=== PATIENT | female | born 1940 | race Hispanic/Latino ===

== ENCOUNTER 2018-07-27 12:01 | Emergency (ER) | payer OTHER ==
[2018-07-27 12:48] LABS: Urine Blood NEGATIVE (NEG); Urine Glucose NEGATIVE (NEG); Urine Protein NEGATIVE (NEG)
[2018-07-27 13:33] LABS: Absolute Lymphocytes (CBC) 1.5 K/uL (0.7-4.9); Absolute Monocytes 0.4 K/uL (0.1-1.3); Absolute Neutrophil 4.8 K/uL (1.8-8.0); Basophils % 0.9 % (0-1.3); Eosinophils % 1.6 % (0-4.4); Hematocrit 36.8 % (36.0-45.0); Lymphocytes % 21.6 % (15.3-44.8); MPV 10.4 fL (7.6-11.3); Monocytes % 5.2 % (3.3-12.3)
[2018-07-27 13:48] LABS: ALT/SGPT 28 U/L (12-78); AST/SGOT 23 U/L (15-37); Albumin 3.8 g/dL (3.4-5.0); Alkaline Phosphatase 92 U/L (45-117); BUN Blood Urea Nitrogen 20 mg/dL (7-18); Bicarbonate 27 mmol/L (21-32); Bilirubin Direct < 0.1 mg/dL (0-0.2); Bilirubin Total 0.4 mg/dL (0.2-1.0); Glucose Level 98 mg/dL (74-106); Lipase 181 U/L (73-393); Potassium 4.3 mmol/L (3.5-5.1); Protein, Total 7.5 g/dL (6.4-8.2); Sodium Level 142 mmol/L (136-145)
[2018-07-27 13:53] LABS: Urine Bacteria <20 /HPF (<20); Urine Culture Reflex Order NOT NEEDED; Urine RBC <5 /HPF (NONE SEEN)
[2018-07-27 14:13] LABS: Magnesium 2.2 mg/dL (1.8-2.4); NT PRO-BNP 314 pg/mL (<450); Troponin (Emerg Dept Use Only) < 0.02 ng/mL (0.0-0.045)
[2018-07-27 14:14] LABS: Protime INR 1.03
--- NOTE | 2018-07-27 14:43 | RAD REPORT ---
EXAM DESCRIPTION: CT - Abdomen Pelvis W Contrast - 07/27/2018 2:12 pm CLINICAL HISTORY: Abdominal pain with nausea. COMPARISON: none. TECHNIQUE: Computed axial tomography of the abdomen pelvis was obtained. 100 cc Isovue-300 was admin istered intravenously. Oral contrast was not requested which limits evaluation of bowel. All CT scans are performed using dose optimization technique as appropriate and may include automated exposure control or mA/KV adjustment according to patient size. FINDINGS: The liver, spleen, pancreas, adrenal and kidneys appear unremarkable. Normal appendix Diverticula stem from the colon. Mild stranding adjacent to the sigmoid colon. Umbilical hernia contains fat. The neck measures 3 centimeters Gallstones. Gallbladder wall is not thickened IMPRESSION: Mild sigmoid diverticulitis Cholelithiasis Umbilical hernia
--- NOTE | 2018-07-27 14:44 | RAD REPORT ---
EXAM DESCRIPTION: Ang Single View07/27/2018 2:04 pm CLINICAL HISTORY: Chest pain COMPARISON: 2017 FINDINGS: The lungs appear clear of acute infiltrate. The heart is mildly enlarged IMPRESSION: No acute abnormalities displayed
[2018-07-27] MEDS ORDERED: METRONIDAZOLE 500mg IVPB 500 MG/100 ML BAG IV ONE (15:14)
[2018-07-27] MEDS ORDERED: CIPROFLOXACIN HCL 500 MG TAB ONE (15:14)
--- NOTE | 2018-07-27 15:36 | EDPHYS ---
Physician Documentation [facility] Name: Preethi Samano Age: 78 yrs Sex: Female : 1940 Arrival Date: 07/27/2018 Time: 12:04 Bed 17 Private MD: ED Physician Juan M Clark HPI: 07/27 14:17 This 78 yrs old Female presents to ER via Ambulatory with complaints of Pelvic pm1 Pain. 14:17 The patient presents with abdominal pain suprapubic area. pm1 14:17 Onset: The symptoms/episode began/occurred yesterday. The symptoms do not radiate. pm1 Associated signs and symptoms: Pertinent positives: nausea, Pertinent negatives: chest pain, constipation, diarrhea, vomiting. The symptoms are described as achy. Modifying factors: The symptoms are alleviated by nothing, the symptoms are aggravated by nothing. Severity of pain: in the emergency department the pain is unchanged. The patient has not experienced similar symptoms in the past. The patient has not recently seen a physician. Historical: - Allergies: 13:07 No Known Allergies; bp - Home Meds: 13:07 lisinopril 20 mg Oral tab 1 tab once daily [Active]; simvastatin 20 mg Oral tab 1 tab bp once daily [Active]; - PMHx: 13:07 High Cholesterol; Hypertension; bp - Immunization history:: Adult Immunizations up to date. - Social history:: Smoking status: Patient/guardian denies using tobacco. - Ebola Screening: : No symptoms or risks identified at this time. ROS: 14:17 Constitutional: Negative for fever, chills, and weight loss, Eyes: Negative for injury, pm1 pain, redness, and discharge, ENT: Negative for injury, pain, and discharge, Neck: Negative for injury, pain, and swelling, Cardiovascular: Negative for chest pain, palpitations, and edema, Respiratory: Negative for shortness of breath, cough, wheezing, and pleuritic chest pain. 14:17 Back: Negative for injury and pain, : Negative for injury, bleeding, discharge, and swelling, MS/Extremity: Negative for injury and deformity, Skin: Negative for injury, rash, and discoloration, Neuro: Negative for headache, weakness, numbness, tingling, and seizure. 14:17 Abdomen/GI: Positive for abdominal pain, nausea, of the suprapubic area, Negative for vomiting, diarrhea, constipation. Exam: 14:17 Constitutional: This is a well developed, well nourished patient who is awake, alert, pm1 and in no acute distress. Head/Face: Normocephalic, atraumatic. Eyes: Pupils equal round and reactive to light, extra-ocular motions intact. Lids and lashes normal. Conjunctiva and sclera are non-icteric and not injected. Cornea within normal limits. Periorbital areas with no swelling, redness, or edema. ENT: Nares patent. No nasal discharge, no septal abnormalities noted. Tympanic membranes are normal and external auditory canals are clear. Oropharynx with no redness, swelling, or masses, exudates, or evidence of obstruction, uvula midline. Mucous membranes moist. Neck: Trachea midline, no thyromegaly or masses palpated, and no cervical lymphadenopathy. Supple, full range of motion without nuchal rigidity, or vertebral point tenderness. No Meningismus. Chest/axilla: Normal chest wall appearance and motion. Nontender with no deformity. No lesions are appreciated. Cardiovascular: Regular rate and rhythm with a normal S1 and S2. No gallops, murmurs, or rubs. Normal PMI, no JVD. No pulse deficits. Respiratory: Lungs have equal breath sounds bilaterally, clear to auscultation and percussion. No rales, rhonchi or wheezes noted. No increased work of breathing, no retractions or nasal flaring. 14:17 Back: No spinal tenderness. No costovertebral tenderness. Full range of motion. Skin: Warm, dry with normal turgor. Normal color with no rashes, no lesions, and no evidence of cellulitis. 14:17 Abdomen/GI: Inspection: abdomen appears normal, Bowel sounds: normal, Palpation: soft, mild abdominal tenderness, in the suprapubic area, mass, is not appreciated, rebound tenderness, is not appreciated. 14:17 Musculoskeletal/extremity: Extremities: all appear grossly normal, with no appreciated pain with palpation, Circulation is intact in all extremities. Vital Signs: 12:40 BP 140 / 64; Pulse 66; Resp 16; Temp 98; Pulse Ox 98% ; Weight 68.04 kg; bp 13:46 BP 101 / 78; Pulse 61; Resp 12; Temp 98.1(TE); Pulse Ox 100% on R/A; mh5 14:36 BP 130 / 52; Pulse 57; Resp 17; Temp 97.9(TE); Pulse Ox 100% on R/A; mh5 15:19 BP 127 / 66; Pulse 64; Resp 14; Temp 97.9(TE); Pulse Ox 100% on R/A; mh5 MDM: 12:51 Patient medically screened. pm1 15:33 Data reviewed: vital signs. Data interpreted: Pulse oximetry: on room air is 100 %. pm1 Interpretation: normal. 15:33 Counseling: I had a detailed discussion with the patient and/or guardian regarding: the pm1 historical points, exam findings, and any diagnostic results supporting the discharge/admit diagnosis, lab results, radiology results, the need for outpatient follow up, to return to the emergency department if symptoms worsen or persist or if there are any questions or concerns that arise at home. 15:35 Special discussion: Based on the patient's Hx, exam, and Dx evaluation, there is no pm1 indication for emergent surgery or inpatient Tx. It is understood by the patient/guardian that if the Sx's persist or worsen they need to return immediately for re-evaluation. no evidence of severe diverticulitis, WBC within normal limits and CT scan shows mild diverticulitis, patient is able to tolerate PO in the ER, no immuno-comprised state or significant morbidities, no severe pain requiring narcotics. 15:35 ED course: Patient ate dragon fruit prior to onset of symptoms. pm1 07/27 12:44 Order name: Urine Dipstick--Ancillary (enter results); Complete Time: 12:51 07/27 12:59 Order name: Basic Metabolic Panel pm1 07/27 12:59 Order name: CBC with Diff pm1 07/27 12:59 Order name: Creatinine for Radiology; Complete Time: 13:47 pm1 07/27 12:59 Order name: Hepatic Function; Complete Time: 13:49 pm1 07/27 12:59 Order name: Lipase; Complete Time: 13:49 pm1 07/27 12:59 Order name: Urine Microscopic Only; Complete Time: 14:17 pm1 07/27 13:02 Order name: Basic Metabolic Panel; Complete Time: 13:49 EDMS 07/27 13:02 Order name: CBC with Automated Diff; Complete Time: 13:44 EDMS 07/27 13:31 Order name: Troponin (emerg Dept Use Only); Complete Time: 14:17 bp 07/27 13:31 Order name: BNP; Complete Time: 14:17 bp 07/27 13:31 Order name: Protime (+inr); Complete Time: 14:46 bp 16 13:31 Order name: Ptt, Activated; Complete Time: 14:46 bp 07/27 13:31 Order name: Magnesium; Complete Time: 14:17 bp 07/27 12:59 Order name: IV Saline Lock; Complete Time: 13:30 pm1 07/27 12:59 Order name: Labs collected and sent; Complete Time: 13:30 pm1 07/27 12:59 Order name: CT Abd/Pelvis - IV Contrast Only; Complete Time: 14:46 pm1 07/27 13:31 Order name: CXR XRAY; Complete Time: 14:46 bp 07/27 13:31 Order name: EKG; Complete Time: 13:34 bp 07/27 13:31 Order name: EKG - Nurse/Tech; Complete Time: 13:44 bp EC:43 Rate is 59 beats/min. Rhythm is regular, Sinus bradycardia with Occasional PVCs. QRS pm1 [place] is Normal. No Q waves. T waves are Normal. No ST changes noted. Clinical impression: Abnormal EKG without significant change. Administered Medications: 15:00 Drug: Ciprofloxacin 500 mg Route: PO; bp 15:24 Follow up: Response: No adverse reaction bp 15:00 Drug: Flagyl 500 mg Volume: 100 ml; Route: IVPB; Rate: 200 ml/hr; Infused Over: 30 bp mins; Site: right forearm; 16:45 Follow up: IV Status: Completed infusion; IV Intake: 100ml bp Disposition: 07/27/18 15:35 Discharged to Home. Impression: Diverticulitis of large intestine without perforation or abscess without bleeding. - Condition is Stable. - Discharge Instructions: Clear Liquid Diet, Adult, Diverticulitis, Full Liquid Diet. - Prescriptions for Flagyl 500 mg Oral Tablet - take 1 tablet by ORAL route every 8 hours for 10 days; 30 tablet. Cipro 500 mg Oral Tablet - take 1 tablet by ORAL route every 12 hours for 10 days; 20 tablet. Bentyl 20 mg Oral Tablet - take 1 tablet by ORAL route every 6 hours As needed; 20 tablet. Zofran 4 mg Oral Tablet - take 1 tablet by ORAL route every 12 hours As needed; 20 tablet. - Medication Reconciliation Form, Thank You Letter, Antibiotic Education, Prescription Opioid Use form. - Follow up: Emergency Department; When: As needed; Reason: Worsening of condition. Follow up: Private Physician; When: 2 - 3 days; Reason: Recheck today's complaints, Continuance of care, Re-evaluation by your physician. - Problem is new. - Symptoms have improved. Addendum: 07/29/2018 02:31 Co-signature as Attending Physician, Juan M Clark MD. g s Signatures: Dispatcher [employer] EDMS Ed Butt, VAT OPERATOR VAT OPERATOR pm1 Juan M Clark MD MD gs Peltier, Brian RN RN bp Corrections: (The following items were deleted from the chart) 07/27 16:45 15:35 07/27/2018 15:35 Discharged to Home. Impression: Diverticulitis of large bp intestine without perforation or abscess without bleeding. Condition is Stable. Forms are Medication Reconciliation Form, Thank You Letter, Antibiotic Education, Prescription Opioid Use. Follow up: Emergency Department; When: As needed; Reason: Worsening of condition. Follow up: Private Physician; When: 2 - 3 days; Reason: Recheck today's complaints, Continuance of care, Re-evaluation by your physician. Problem is new. Symptoms have improved. pm1
--- NOTE | 2018-07-27 15:36 | ER ---
Nurse's Notes [facility] Name: Preethi Samano Age: 78 yrs Sex: Female : 1940 Arrival Date: 07/27/2018 Time: 12:04 Bed 17 Private MD: Diagnosis: Diverticulitis of large intestine without perforation or abscess without bleeding Presentation: 07/27 12:40 Presenting complaint: Patient states: LOWER ABDOMINAL PAIN SINCE Y/D AM, NO VOMITING OR bp DIARRHEA. Transition of care: patient was not received from another setting of care. 12:40 Method Of Arrival: Ambulatory bp 12:40 Onset of symptoms is unknown. Risk Assessment: Do you want to hurt yourself or someone bp else? Patient reports no desire to harm self or others. Initial Sepsis Screen: Does the patient meet any 2 criteria? No. Patient's initial sepsis screen is negative. Does the patient have a suspected source of infection? No. Patient's initial sepsis screen is negative. Care prior to arrival: None. 12:40 Acuity: [place] 3 bp Triage Assessment: 12:40 General: Appears in no apparent distress. comfortable, obese, Behavior is calm, bp cooperative, appropriate for age. Pain: Complains of pain in right lower quadrant and left lower quadrant. EENT: No deficits noted. Neuro: Level of Consciousness is awake, alert, obeys commands, Oriented to person, place, time, situation, Appropriate for age. Cardiovascular: No deficits noted. Respiratory: Airway is patent Respiratory effort is even, unlabored, Respiratory pattern is regular, symmetrical. GI: Reports lower abdominal pain, nausea. : No signs and/or symptoms were reported regarding the genitourinary system. Derm: No deficits noted. Musculoskeletal: Circulation, motion, and sensation intact. Range of motion: intact in all extremities. Historical: - Allergies: 13:07 No Known Allergies; bp - Home Meds: 13:07 lisinopril 20 mg Oral tab 1 tab once daily [Active]; simvastatin 20 mg Oral tab 1 tab bp once daily [Active]; - PMHx: 13:07 High Cholesterol; Hypertension; bp - Immunization history:: Adult Immunizations up to date. - Social history:: Smoking status: Patient/guardian denies using tobacco. - Ebola Screening: : No symptoms or risks identified at this time. Screenin:40 Abuse screen: Denies threats or abuse. Denies injuries from another. Nutritional bp screening: No deficits noted. Tuberculosis screening: No symptoms or risk factors identified. Fall Risk None identified. Assessment: 12:40 General: SEE TRIAGE NOTE. bp 14:30 Reassessment: ALL CURRENT ORDERS COMPLETED, RESULTS PENDING. bp 16:43 Reassessment: PT D/C HOME AMBULATORY WITH FAMILY, DX WITH DIVERTICULITIS WITHOUT bp PERFORATION. Vital Signs: 12:40 BP 140 / 64; Pulse 66; Resp 16; Temp 98; Pulse Ox 98% ; Weight 68.04 kg; bp 13:46 BP 101 / 78; Pulse 61; Resp 12; Temp 98.1(TE); Pulse Ox 100% on R/A; mh5 14:36 BP 130 / 52; Pulse 57; Resp 17; Temp 97.9(TE); Pulse Ox 100% on R/A; mh5 15:19 BP 127 / 66; Pulse 64; Resp 14; Temp 97.9(TE); Pulse Ox 100% on R/A; mh5 ED Course: 12:04 Patient arrived in ED. as 12:37 Cecilio Herr, RN is Primary Nurse. bp 12:40 Arm band placed on. bp 12:40 Patient has correct armband on for positive identification. Bed in low position. Call bp light in reach. Side rails up X2. Adult w/ patient. Pulse ox on. NIBP on. 12:40 Patient maintains SpO2 saturation greater than 95% on room air. bp 12:51 Ed Butt NP is PHCP. pm1 12:51 Juan M Clark MD is Attending Physician. pm1 13:06 Triage completed. bp 13:19 Radiology exam delayed due to lab results not completed at this time. (BUN/Creatinine). kw1 13:30 Urine Microscopic Only Sent. mh5 13:30 Basic Metabolic Panel Sent. mh5 13:30 CBC with Diff Sent. mh5 13:30 Creatinine for Radiology Sent. mh5 13:30 Hepatic Function Sent. mh5 13:30 Lipase Sent. 5 13:30 CBC with Automated Diff Sent. 5 13:30 Basic Metabolic Panel Sent. mh5 13:30 Initial lab(s) drawn, by nh, sent to lab. Urine collected: clean catch specimen, clear, mh5 Amount Voided: 240mL. Inserted saline lock: 20 gauge in right antecubital area, using aseptic technique. Blood collected. 13:44 EKG done, by ED staff, reviewed by Ed Butt NP. [facility] 13:44 Protime (+inr) Sent. [facility] 13:44 Ptt, Activated Sent. [facility] 13:44 BNP Sent. [facility] 13:44 Troponin (emerg Dept Use Only) Sent. [facility] 13:45 Warm blanket given. monitoring manager on. [facility] 14:05 CXR XRAY In Process Unspecified. EDMS 14:10 CT completed. Patient tolerated procedure well. Patient moved back from CT. kw1 14:13 CT Abd/Pelvis - IV Contrast Only In Process Unspecified. EDMS 16:44 No provider procedures requiring assistance completed. IV discontinued, intact, bp bleeding controlled, No redness/swelling at site. Pressure dressing applied. Administered Medications: 15:00 Drug: Ciprofloxacin 500 mg Route: PO; bp 15:24 Follow up: Response: No adverse reaction bp 15:00 Drug: Flagyl 500 mg Volume: 100 ml; Route: IVPB; Rate: 200 ml/hr; Infused Over: 30 bp mins; Site: right forearm; 16:45 Follow up: IV Status: Completed infusion; IV Intake: 100ml bp Intake: 16:45 IV: 100ml; Total: 100ml. bp Outcome: 15:35 Discharge ordered by . pm1 16:44 Discharged to home ambulatory, with family. bp 16:44 Condition: stable 16:44 Discharge instructions given to patient, family, Instructed on discharge instructions, follow up and referral plans. medication usage, Demonstrated understanding of instructions, follow-up care, medications, Prescriptions given X 4. 16:45 Patient left the ED. bp Signatures: Dispatcher [employer] Yuliana Eric Patrick, REJI REGISTERED NURSE [employer] PARTUM pm1 Preethi Elizondo [facility] Cecilio Herr, RN RN bp Laisha Alonso 1
--- NOTE | 2018-07-27 20:48 | EKG ---
Test Date: 2018-07-27 Test Time: 13:39:32 Distribution System Operator: KRAIG MEASUREMENT RESULTS: Intervals: Rate: 59 MS: 156 QRSD: 78 QT: 418 QTc: 413 [place]: P: 23 MS: 156 QRS: -5 T: 47 INTERPRETIVE STATEMENTS: Sinus bradycardia with occasional premature ventricular complexes Cannot rule out Anterior infarct, age undetermined Abnormal ECG Compared to ECG 11/14/2016 15:58:24 Ventricular premature complex(es) now present Myocardial infarct finding now present Electronically Signed On 07-27-18 20:47:45 CDT by Kevin Rico
== END 2018-07-27 16:45 | disposition home or self-care (01) ==
LOC: ER 12:01
DX: K57.92 Diverticulitis of intestine, part unspecified, without perforation or abscess without bleeding (principal); I10 Essential (primary) hypertension; E78.00 Pure hypercholesterolemia, unspecified
CPT/HCPCS: 96365; 93005; 85025; 80048; 36415; 83735; 85610; 80076; 85730; 84484; 83690; 83880; 74177; 71045; 99285; 96366; Q9967; 81003; 81015

== ENCOUNTER 2018-11-20 11:00 | Emergency (ER) | payer OTHER ==
[2018-11-20] MEDS ORDERED: dexAMETHasone 10 MG/ML VIAL ONE (12:28)
--- NOTE | 2018-11-20 12:37 | EDPHYS ---
Physician Documentation [facility] Name: Preethi Samano Age: 78 yrs Sex: Female : 1940 Arrival Date: 11/20/2018 Time: 11:04 Bed 9 Private MD: ED Physician Juan M Clark HPI: 11/20 12:22 This 78 yrs old Female presents to ER via Ambulatory with complaints of Hives. jmm 12:22 The patient's rash thought to be caused by an unknown cause. Onset: The jmm symptoms/episode began/occurred gradually, 3 day(s) ago. Associated signs and symptoms: Pertinent positives: itching, Pertinent negatives: difficulty breathing, fever, Pain swelling of lips, swelling of throat, swelling of tongue, vomiting. The patient has experienced a previous episode. Denies vomiting or shortness of breath. . Historical: - Allergies: 11:25 No Known Allergies; ch - Home Meds: 11:25 lisinopril 20 mg Oral tab 1 tab once daily [Active]; simvastatin 20 mg Oral tab 1 tab ch once daily [Active]; - PMHx: 11:25 High Cholesterol; Hypertension; ch - PSHx: 11:25 None; ch - Immunization history:: Adult Immunizations up to date. - Social history:: Smoking status: Patient/guardian denies using tobacco. - Ebola Screening: : Patient negative for fever greater than or equal to 101.5 degrees Fahrenheit, and additional compatible Ebola Virus Disease symptoms Patient denies exposure to infectious person Patient denies travel to an Ebola-affected area in the 21 days before illness onset No symptoms or risks identified at this time. ROS: 12:22 Constitutional: Negative for fever, chills, and weight loss, Cardiovascular: Negative jmm for chest pain, palpitations, and edema, Respiratory: Negative for shortness of breath, cough, wheezing, and pleuritic chest pain, Abdomen/GI: Negative for abdominal pain, nausea, vomiting, diarrhea, and constipation. 12:22 Skin: Positive for rash. 12:22 All other systems are negative. Exam: 12:22 Constitutional: This is a well developed, well nourished patient who is awake, alert, jmm and in no acute distress. Head/Face: atraumatic. Eyes: EOMI, no conjunctival erythema appreciated ENT: Moist Mucus Membranes Neck: Trachea midline, Supple Chest/axilla: Normal chest wall appearance and motion. Cardiovascular: Regular rate and rhythm. No edema appreciated Respiratory: Normal respirations, no respiratory distress appreciated Abdomen/GI: Non distended, soft Back: Normal ROM 12:22 Skin: urticaria noted diffusely. 12:22 Neuro: Orientation: is normal, Mentation: is normal, Memory: is normal. 12:22 Psych: Behavior/mood is pleasant, cooperative. Vital Signs: 11:25 BP 152 / 81; Pulse 70; Resp 16; Temp 97.2; Pulse Ox 99% on R/A; Weight 63.5 kg; Height ch 4 ft. 10 in. (147.32 cm); Pain 0/10; 11:25 Body Mass Index 29.26 (63.50 kg, 147.32 cm) [employer]: 12:[address] [facility] 12:32 Data reviewed: vital signs, nurses notes. Counseling: I had a detailed discussion with lady the patient and/or guardian regarding: the historical points, exam findings, and any diagnostic results supporting the discharge/admit diagnosis, the need for outpatient follow up, to return to the emergency department if symptoms worsen or persist or if there are any questions or concerns that arise at home. ED course: Patient is alert and non toxic in appearance in the ED. PE findings consistent with urticaria. No pharyngeal edema, I do not suspect anaphylaxis. Patient is given strict return precautions. Patient understood and agrees with the plan of care. . Administered Medications: 12:31 Drug: Decadron 10 mg Route: IM; Site: right gluteus; ss 12:56 Follow up: Response: No adverse reaction Disposition: 17:16 Co-signature as Attending Physician, Juan M Clark MD. Disposition: 11/20/18 12:36 Discharged to Home. Impression: Urticaria. - Condition is Stable. - Discharge Instructions: Hives. - Prescriptions for Prednisone 20 mg Oral Tablet - take 1 tablet by ORAL route once daily for 5 days; 5 tablet. - Medication Reconciliation Form, Thank You Letter, Antibiotic Education, Prescription Opioid Use form. - Follow up: Private Physician; When: 2 - 3 days; Reason: Recheck today's complaints, Continuance of care, Re-evaluation by your physician. Signatures: Lou Reyes RN RN Chema Carrasco PA PA jmm Smirch, Shelby, RN RN ss Juan M Clark MD MD gs Corrections: (The following items were deleted from the chart) 12:56 12:36 11/20/2018 12:36 Discharged to Home. Impression: Urticaria. Condition is Stable. ss Forms are Medication Reconciliation Form, Thank You Letter, Antibiotic Education, Prescription Opioid Use. Follow up: Private Physician; When: 2 - 3 days; Reason: Recheck today's complaints, Continuance of care, Re-evaluation by your physician. lady
--- NOTE | 2018-11-20 12:37 | ER ---
Nurse's Notes [facility] Name: Preethi Samano Age: 78 yrs Sex: Female : 1940 Arrival Date: 11/20/2018 Time: 11:04 Bed 9 Private MD: Diagnosis: Urticaria Presentation: 11/20 11:24 Presenting complaint: Patient states: hives for three days. itches all over. Transition ch of care: patient was not received from another setting of care. Onset: The symptoms/episode began/occurred gradually, 3 day(s) ago. Anaphylaxis evaluation, no signs or symptoms of anaphylaxis were noted. Onset of symptoms was November 17, 2018. Risk Assessment: Do you want to hurt yourself or someone else? Patient reports no desire to harm self or others. Initial Sepsis Screen: Does the patient meet any 2 criteria? No. Patient's initial sepsis screen is negative. Does the patient have a suspected source of infection? No. Patient's initial sepsis screen is negative. Care prior to arrival: None. 11:24 Method Of Arrival: Ambulatory 11:24 Acuity: ISRAEL 5 ch Triage Assessment: 11:25 General: Appears in no apparent distress. uncomfortable, Behavior is calm, cooperative, ch appropriate for age. Pain: Denies pain. Historical: - Allergies: 11:25 No Known Allergies; ch - Home Meds: 11:25 lisinopril 20 mg Oral tab 1 tab once daily [Active]; simvastatin 20 mg Oral tab 1 tab ch once daily [Active]; - PMHx: 11:25 High Cholesterol; Hypertension; ch - PSHx: 11:25 None; ch - Immunization history:: Adult Immunizations up to date. - Social history:: Smoking status: Patient/guardian denies using tobacco. - Ebola Screening: : Patient negative for fever greater than or equal to 101.5 degrees Fahrenheit, and additional compatible Ebola Virus Disease symptoms Patient denies exposure to infectious person Patient denies travel to an Ebola-affected area in the 21 days before illness onset No symptoms or risks identified at this time. Screenin:55 Abuse screen: Denies threats or abuse. Denies injuries from another. Nutritional ss screening: No deficits noted. Tuberculosis screening: No symptoms or risk factors identified. Never had TB. Fall Risk None identified. Assessment: 11:55 General: Appears in no apparent distress. comfortable, Behavior is calm, cooperative, ss Denies fever, feeling ill, fatigue, chills. Pain: Denies pain. Neuro: Level of Consciousness is awake, alert, obeys commands, Oriented to person, place, time, situation. Cardiovascular: Capillary refill < 3 seconds is brisk in bilateral fingers. Respiratory: Airway is patent Respiratory effort is even, unlabored, Respiratory pattern is regular, symmetrical, Breath sounds are clear bilaterally. Denies cough, shortness of breath labored breathing, pain with respiration, pain with cough, pain with movement. GI: Patient currently denies abdominal pain, diarrhea, nausea, tolerance of food. : No signs and/or symptoms were reported regarding the genitourinary system. EENT: Oral mucosa is moist. Derm: Rash noted that is itchy, red, on back, abdomen, right arm, left arm, right leg and left leg. Musculoskeletal: Circulation, motion, and sensation intact. Range of motion: intact in all extremities, Swelling absent. Vital Signs: 11:25 BP 152 / 81; Pulse 70; Resp 16; Temp 97.2; Pulse Ox 99% on R/A; Weight 63.5 kg; Height ch 4 ft. 10 in. (147.32 cm); Pain 0/10; 11:25 Body Mass Index 29.26 (63.50 kg, 147.32 cm) ED Course: 11:04 Patient arrived in ED. as 11:25 Triage completed. 11:25 Arm band placed on left wrist. Patient placed in waiting room. 11:55 Patient has correct armband on for positive identification. Bed in low position. Call ss light in reach. 11:59 Chema Carrasco PA is PHCP. [facility] 11:59 Juan M Clark MD is Attending Physician. [facility] 12:31 Porsha Grullon, DIAMANTE is Primary Nurse. ss 12:54 No provider procedures requiring assistance completed. Patient did not have IV access ss during this emergency room visit. Administered Medications: 12:31 Drug: Decadron 10 mg Route: IM; Site: right gluteus; ss 12:56 Follow up: Response: No adverse reaction ss Outcome: 12:36 Discharge ordered by . [facility] 12:54 Discharged to home ambulatory, with family. ss 12:54 Condition: good 12:54 Discharge instructions given to patient, family, Instructed on discharge instructions, follow up and referral plans. medication usage, Demonstrated understanding of instructions, follow-up care, medications, Prescriptions given X 1. 12:56 Patient left the ED. ss Signatures: Lou Reyes, RN RN Chema Whitfield PA PA jmm Martinez, Amelia as Smirch, Shelby, DIAMANTE RN ss
[2018-11-20 13:01] VITALS: BP 152/81; TEMP 97.2; O2SAT 99
== END 2018-11-20 12:56 | disposition home or self-care (01) ==
LOC: ER 11:00
DX: L50.9 Urticaria, unspecified (principal); I10 Essential (primary) hypertension; E78.00 Pure hypercholesterolemia, unspecified
CPT/HCPCS: 96372; 99283; J1100

== ENCOUNTER 2020-12-05 22:40 | Emergency (ER) | payer OTHER ==
[2020-12-06] MEDS ORDERED: MORPHINE 2 MG/ML SYR ONE (00:53)
[2020-12-06] MEDS ORDERED: dexAMETHasone 10 MG/ML VIAL ONE (00:54)
[2020-12-06] MEDS ORDERED: NA CHLORIDE 0.9% 500 ML ONE (00:54)
[2020-12-06] MEDS ORDERED: ONDANSETRON 4 MG/2 ML VIAL ONE (00:54)
[2020-12-06] MEDS ORDERED: KETOROLAC 30 MG/ML INJ ONE (00:54)
[2020-12-06 01:02] LABS: Absolute Lymphocytes (CBC) 2.2 K/uL (0.7-4.9); Basophils % 0.6 % (0-1.3); Hematocrit 34.3 % (36.0-45.0); Lymphocytes % 28.2 % (15.3-44.8); MPV 9.7 fL (7.6-11.3); RBC Red Blood Cell Count 3.83 M/uL (3.86-4.86)
[2020-12-06 01:11] LABS: Albumin 3.6 g/dL (3.4-5.0); Bilirubin Total 0.4 mg/dL (0.2-1.0); Potassium 4.1 mmol/L (3.5-5.1); Protein, Total 7.3 g/dL (6.4-8.2)
--- NOTE | 2020-12-06 11:26 | RAD REPORT ---
EXAM DESCRIPTION: CT - Head C Spine Mpr Wo Con - 12/06/2020 6:30 am COMPARISON: None. CLINICAL HISTORY: [facility] MAIN PAIN TECHNIQUE: Axial images were obtained from skull base to vertex without intravenous contrast. Imag es viewed on bone and brain windows. Multiplanar reformats were performed. Automated exposure contr ol was utilized on this examination as a dose lowering technique. FINDINGS: Brain parenchyma, ventricles, dura, meninges, and extra-axial spaces: Mild generalized cer ebral and cerebellar volume loss is present. Mild hypodensities in the subcortical white matter of johny th hemispheres are nonspecific but likely relate to chronic small vessel disease. No acute intracrani al hemorrhage or abnormal extra-axial fluid collections. Vascular structures: No hyperdense arteries or veins. Calvarium, mastoid air cells, paranasal sinuses and orbits: The calvarium is normal. The mastoid air cells are clear. Visualized paranasal sinuses are unremarkable. Orbital structures are unremarkable. EXAM DESCRIPTION: CT Cervical Spine COMPARISON: None. CLINICAL HISTORY: [facility] MAIN PAIN TECHNIQUE: Axial CT images were obtained through the entire cervical spine without contrast. Sagit anette and coronal reconstructions are provided. Automated exposure control was utilized on this examina tion as a dose lowering technique. FINDINGS: Vertebrae: There are degenerative changes of the odontoid process. Anterior vertebral os teophytes are present. Vertebral statures and alignment are normal. No acute fracture, dislocation or destructive osseous process is present. Spinal canal, foramina, and facet joints: Greatest foraminal stenosis are severe at right C5, bilateral C6, left C7 due to uncovertebral and fa cet hypertrophy. Paraspinous soft-tissues: Normal. Thyroid: Normal. Other Findings: Multivessel atherosclerosis is present. A few groundglass opacities are noted in the lungs with biapical fibrosis. IMPRESSION: HEAD IMPRESSION: 1. No acute intracranial abnormality. 2. Mild senescent changes. C-SPINE IMPRESSION: 1. No acute findings of the cervical spine. 2. A few groundglass opacities in the lungs may represent scarring or pneumonia. Electronically signed by: Jorgito Simpson MD 12/06/2020 2:22 AM CDT Due to temporary technical issues with the PACS/Fluency reporting system, reports are being signed by the in house radiologist without review as a courtesy to ensure prompt reporting. The interpreting r adiologist is fully responsible for the content of the report.
--- NOTE | 2020-12-06 12:14 | EDPHYS ---
Physician Documentation [facility] Name: Preethi Samano Age: 80 yrs Sex: Female : 1940 Arrival Date: 12/05/2020 Time: 22:43 Bed 18 Private MD: LOBO Physician Festus Chanel HPI: 12/05 23:55 This 80 yrs old Female presents to ER via Wheelchair with complaints of Neck juliana Pain, <24hrs Old. 23:55 The patient or guardian complains of decreased range of motion. The symptoms are juliana located at the cervical spine. Onset: The symptoms/episode began/occurred 3 day(s) ago. Context: The problem was sustained at an unknown location. Associated signs and symptoms: Pertinent positives: tingling, in the anterior aspect of right shoulder, right bicep, posterior aspect of right shoulder and right tricep. The pain does not radiate. Modifying factors: The symptoms are alleviated by nothing. the symptoms are aggravated by nothing. Severity of symptoms: At their worst the symptoms were moderate, in the emergency department the symptoms are unchanged. The patient has experienced similar episodes in the past, multiple times. Historical: - Allergies: 22:52 No Known Allergies; sj1 - Home Meds: 22:52 lisinopril 20 mg Oral tab 1 tab once daily [Active]; simvastatin 20 mg Oral tab 1 tab sj1 once daily [Active]; - PMHx: 22:52 High Cholesterol; Hypertension; sj1 - PSHx: 22:52 Unable to Obtain; sj1 - Immunization history:: Client reports receiving the 2nd dose of the Covid vaccine. - Social history:: Smoking status: Patient denies any tobacco usage or history of. Patient/guardian denies using alcohol, street drugs. - Family history:: not pertinent. ROS: 23:55 Constitutional: Negative for fever, chills, and weight loss, Eyes: Negative for injury, juliana pain, redness, and discharge, ENT: Negative for injury, pain, and discharge, Cardiovascular: Negative for chest pain, palpitations, and edema, Respiratory: Negative for shortness of breath, cough, wheezing, and pleuritic chest pain, Abdomen/GI: Negative for abdominal pain, nausea, vomiting, diarrhea, and constipation, Back: Negative for injury and pain, : Negative for injury, bleeding, discharge, and swelling, MS/Extremity: Negative for injury and deformity, Skin: Negative for injury, rash, and discoloration, Neuro: Negative for headache, weakness, numbness, tingling, and seizure, Psych: Negative for depression, anxiety, suicide ideation, homicidal ideation, and hallucinations, Allergy/Immunology: Negative for hives, rash, and allergies, Endocrine: Negative for neck swelling, polydipsia, polyuria, polyphagia, and marked weight changes. 23:55 Neck: Positive for pain with movement, pain at rest, tenderness, of the neck. Exam: 23:57 Constitutional: This is a well developed, well nourished patient who is awake, alert, juliana and in no acute distress. Head/Face: Normocephalic, atraumatic. Eyes: Pupils equal round and reactive to light, extra-ocular motions intact. Lids and lashes normal. Conjunctiva and sclera are non-icteric and not injected. Cornea within normal limits. Periorbital areas with no swelling, redness, or edema. Neck: Trachea midline, no thyromegaly or masses palpated, and no cervical lymphadenopathy. Supple, full range of motion without nuchal rigidity, or vertebral point tenderness. No Meningismus. Chest/axilla: Normal chest wall appearance and motion. Nontender with no deformity. No lesions are appreciated. Cardiovascular: Regular rate and rhythm with a normal S1 and S2. No gallops, murmurs, or rubs. Normal PMI, no JVD. No pulse deficits. Respiratory: Lungs have equal breath sounds bilaterally, clear to auscultation and percussion. No rales, rhonchi or wheezes noted. No increased work of breathing, no retractions or nasal flaring. Abdomen/GI: Soft, non-tender, with normal bowel sounds. No distension or tympany. No guarding or rebound. No evidence of tenderness throughout. Back: No spinal tenderness. No costovertebral tenderness. Full range of motion. Female : Normal external genitalia. Skin: Warm, dry with normal turgor. Normal color with no rashes, no lesions, and no evidence of cellulitis. MS/ Extremity: Pulses equal, no cyanosis. Neurovascular intact. Full, normal range of motion. Neuro: Awake and alert, GCS 15, oriented to person, place, time, and situation. Cranial nerves II-XII grossly intact. Motor strength 5/5 in all extremities. Sensory grossly intact. Cerebellar exam normal. Normal gait. Psych: Awake, alert, with orientation to person, place and time. Behavior, mood, and affect are within normal limits. 23:57 Neck: External neck: tenderness, that is mild, that is moderate, of the occiput, right mid cervical area, right trapezius and left posterior aspect of neck. Vital Signs: 22:49 BP 135 / 66; Pulse 80; Resp 16 S; Temp 98.4(O); Pulse Ox 98% on R/A; Pain 11/20; sj1 23:33 BP 118 / 57; Pulse 78; Resp 20; Temp 98.0; Pulse Ox 99% on R/A; cc4 12/06 00:00 BP 119 / 50; Pulse 74; Resp 20; Pulse Ox 99% on R/A; cc4 01:00 BP 112 / 52; Pulse 62; Resp 18; Pulse Ox 99% on R/A; cc4 02:30 BP 138 / 68; Pulse 60; Resp 18; Pulse Ox 99% on R/A; cc4 03:00 BP 150 / 68; Pulse 62; Resp 20; Temp 98.2; Pulse Ox 98% on R/A; cc4 MDM: 12/05 22:55 Patient medically screened. juliana 23:58 Differential diagnosis: C-Spine Fracture Cervical Disc Herniation Cervical Raiculopathy juliana cervical strain, Degenerative Disc Disease fracture, Neck Contusion Osteoarthritis Spinal Cord Compression torticollis, Unstable Vertebral Fracture. Data reviewed: vital signs, nurses notes, lab test result(s), radiologic studies, CT scan. Data interpreted: vice president business development: rate is 80 beats/min, rhythm is regular, Pulse oximetry: on room air is 98 %. Counseling: I had a detailed discussion with the patient and/or guardian regarding: the historical points, exam findings, and any diagnostic results supporting the discharge/admit diagnosis, lab results, radiology results. 12/05 23:55 Order name: CT Head C Spine juliana Administered Medications: 12/06 00:28 Drug: NS 0.9% 500 ml Route: IV; Rate: bolus; Site: right antecubital; cc4 01:30 Follow up: Response: No adverse reaction; IV Status: Completed infusion; IV Intake: cc4 500ml 00:30 Drug: Decadron - Dexamethasone 10 mg Route: IVP; Site: right antecubital; cc4 03:00 Follow up: Urine output 300 ml; Response: No adverse reaction; Pain is decreased cc4 00:32 Drug: Zofran (Ondansetron) 4 mg Route: IVP; Site: right antecubital; cc4 03:00 Follow up: Response: No adverse reaction cc4 00:34 Drug: Ketorolac 30 mg Route: IVP; Site: right antecubital; cc4 03:00 Follow up: Response: No adverse reaction; Pain is decreased cc4 00:36 Drug: morphine 2 mg Route: IVP; Site: right antecubital; cc4 03:00 Follow up: Response: No adverse reaction; Pain is decreased cc4 Disposition Summary: 12/06/20 02:29 Discharge Ordered Location: Home juliana Problem: new juliana Symptoms: have improved juliana Condition: Stable juliana Diagnosis - Headache juliana - Strain of muscle, fascia and tendon at neck level juliana - Radiculopathy, cervical region juliana Followup: juliana - With: Private Physician - When: 2 - 3 days - Reason: Recheck today's complaints, Continuance of care, Re-evaluation by your physician Followup: juliana - With: - When: 2 - 3 days - Reason: Recheck today's complaints, Re-evaluation by your physician Discharge Instructions: - Discharge Summary Sheet juliana - Cervical Radiculopathy juliana - Radicular Pain juliana Forms: - Medication Reconciliation Form juliana - Thank You Letter juliana - Antibiotic Education juliana - Prescription Opioid Use juliana Prescriptions: - dexamethasone 2 mg Oral tablet - take 1 tablet by ORAL route 2 times per day; 10 tablet; Refills: 0, Product juliana Selection Permitted - Motrin IB 200 mg Oral Tablet - take 2 tablet by ORAL route every 6 hours As needed as needed with food; 30 juliana tablet; Refills: 0, Product Selection Permitted - Tylenol-Codeine #3 300 mg-30 mg Oral - take 1 tablet by ORAL route every 4-6 hours; 15 tablet; Refills: 0, Product juliana Selection Permitted Signatures: Dispatcher [employer] Festus Soni MD MD cha Cooper, Christie RN RN cc4 Samantha Mauro RN RN sj1
--- NOTE | 2020-12-06 12:14 | ER ---
Nurse's Notes [facility] Name: Preethi Samano Age: 80 yrs Sex: Female : 1940 Arrival Date: 12/05/2020 Time: 22:43 Bed 18 Private MD: Diagnosis: Headache;Strain of muscle, fascia and tendon at neck level;Radiculopathy, cervical region Presentation: 12/05 22:49 Chief complaint: Patient states: neck pain since 1800, denies injury. Coronavirus sj1 screen: Vaccine status: Patient reports receiving the 2nd dose of the covid vaccine. Ebola Screen: No symptoms or risks identified at this time. Initial Sepsis Screen: Does the patient meet any 2 criteria? No. Patient's initial sepsis screen is negative. Does the patient have a suspected source of infection? No. Patient's initial sepsis screen is negative. Risk Assessment: Do you want to hurt yourself or someone else? Patient reports no desire to harm self or others. Onset of symptoms was December 05, 2020. 22:49 Method Of Arrival: Wheelchair sj1 22:49 Acuity: [place]RA[place] 3 sj1 Triage Assessment: 22:52 General: Appears in no apparent distress. Behavior is calm, cooperative, agitated. sj1 Pain: Complains of pain in neck. Historical: - Allergies: 22:52 No Known Allergies; sj1 - Home Meds: 22:52 lisinopril 20 mg Oral tab 1 tab once daily [Active]; simvastatin 20 mg Oral tab 1 tab sj1 once daily [Active]; - PMHx: 22:52 High Cholesterol; Hypertension; sj1 - PSHx: 22:52 Unable to Obtain; sj1 - Immunization history:: Client reports receiving the 2nd dose of the Covid vaccine. - Social history:: Smoking status: Patient denies any tobacco usage or history of. Patient/guardian denies using alcohol, street drugs. - Family history:: not pertinent. Screenin:54 Abuse screen: Denies threats or abuse. Denies injuries from another. Nutritional sj1 screening: No deficits noted. Tuberculosis screening: No symptoms or risk factors identified. Fall Risk None identified. Assessment: 23:05 General: Appears uncomfortable. Pain: Complains of pain in head, back of neck and upper cc4 back Pain radiates to scalp, back and neck c/o headache with cervical pain that radiates into scalp with tingling sensation \\T\\ radiates into bilaterally upper back intermittently since fall in 03/2020. Pain currently is 10 out of 10 on a pain scale. Quality of pain is described as aching, tingling, Pain began approximately 1800 today. Is continuous, Alleviated by nothing. Neuro: Level of Consciousness is awake, alert, obeys commands, Oriented to person, place, time, situation, Criminal Justice Instructor are equal bilaterally Moves all extremities. Gait is unsteady, arrived via w/c.. 12/06 00:28 Reassessment: No changes from previously documented assessment. # 20 g saline lock cc4 inserted right AC x1 attempt with no difficulty, kelly. well; blood drawn \\T\\ sent to lab; IVF NS hung to saline lock \\T\\ infusing \\T\\ bolus rate with no s/sx's of infiltration; meds given as ordered; awaiting CT scan. 02:00 Reassessment: Patient appears in no apparent distress at this time. Patient states cc4 feeling better. Patient states symptoms have improved. Reassessment: Grandson \\T\\ bedside \\T\\ interpreting for pt; grandson reports "pain decreased significantly but not quite gone". 02:30 Reassessment: Assisted up \\T\\ ambulatory to BR with no difficulty; voided with no cc4 reported difficulty \\T\\ ambulatory back to stretcher, kelly. well; voices no complaints. Vital Signs: 12/05 22:49 BP 135 / 66; Pulse 80; Resp 16 S; Temp 98.4(O); Pulse Ox 98% on R/A; Pain 11/20; sj1 23:33 BP 118 / 57; Pulse 78; Resp 20; Temp 98.0; Pulse Ox 99% on R/A; cc4 12/06 00:00 BP 119 / 50; Pulse 74; Resp 20; Pulse Ox 99% on R/A; cc4 01:00 BP 112 / 52; Pulse 62; Resp 18; Pulse Ox 99% on R/A; cc4 02:30 BP 138 / 68; Pulse 60; Resp 18; Pulse Ox 99% on R/A; cc4 03:00 BP 150 / 68; Pulse 62; Resp 20; Temp 98.2; Pulse Ox 98% on R/A; cc4 ED Course: 12/05 22:43 Patient arrived in ED. bp1 22:52 Triage completed. sj1 22:52 Arm band placed on. sj1 22:54 Patient has correct armband on for positive identification. sj1 22:55 Festus Chanel MD is Attending Physician. juliana 23:25 Reshma Chua, DIAMANTE is Primary Nurse. cc4 12/06 02:29 Michael Morton MD is Referral Physician. juliana 03:00 No provider procedures requiring assistance completed. cc4 03:00 IV discontinued, intact, bleeding controlled, No redness/swelling at site. Pressure cc4 dressing applied. Administered Medications: 00:28 Drug: NS 0.9% 500 ml Route: IV; Rate: bolus; Site: right antecubital; cc4 01:30 Follow up: Response: No adverse reaction; IV Status: Completed infusion; IV Intake: cc4 500ml 00:30 Drug: Decadron - Dexamethasone 10 mg Route: IVP; Site: right antecubital; cc4 03:00 Follow up: Urine output 300 ml; Response: No adverse reaction; Pain is decreased cc4 00:32 Drug: Zofran (Ondansetron) 4 mg Route: IVP; Site: right antecubital; cc4 03:00 Follow up: Response: No adverse reaction cc4 00:34 Drug: Ketorolac 30 mg Route: IVP; Site: right antecubital; cc4 03:00 Follow up: Response: No adverse reaction; Pain is decreased cc4 00:36 Drug: morphine 2 mg Route: IVP; Site: right antecubital; cc4 03:00 Follow up: Response: No adverse reaction; Pain is decreased cc4 Intake: 01:30 IV: 500ml; Total: 500ml. cc4 Output: 03:00 Urine: 300ml; Total: 300ml. cc4 Outcome: 02:29 Discharge ordered by . [facility] 03:00 Condition: improved cc4 03:00 Discharged to home via wheelchair. cc4 03:00 Discharge instructions given to patient, family, Instructed on discharge instructions, follow up and referral plans. medication usage, Demonstrated understanding of instructions, follow-up care, medications, Prescriptions given X 3. 03:18 Patient left the ED. cc4 Signatures: Festus Chanel MD MD cha Pania[place], [facility] Reshma Chua, RN RN cc4 Nj, Sade, RN RN sj1
[2020-12-06 14:00] VITALS: BP 150/68; TEMP 98.2; O2SAT 98
== END 2020-12-06 03:18 | disposition home or self-care (01) ==
LOC: ER 22:40
DX: S16.1XXA Strain of muscle, fascia and tendon at neck level, initial encounter (principal); M54.12 Radiculopathy, cervical region; I10 Essential (primary) hypertension; E78.00 Pure hypercholesterolemia, unspecified
CPT/HCPCS: 96361; 85025; 36415; 85652; 80053; 70450; 72125; 96375; 96374; 99283; J1100; J2270; J7040; J2405

== ENCOUNTER 2021-04-18 15:40 | Emergency (ER) | payer OTHER ==
--- OUTSIDE RECORDS SUMMARY | 2021-04-18 15:43 | XMS REPORT | Continuity of Care Document ---
:1940 Author Organization [facility] t Address [address] [place] [address] Care Team Providers Name Role Phone Unavailable Unavailable Unavailable Problems This patient has no known problems. Allergies, Adverse Reactions, Alerts This patient has no known allergies or adverse reactions. Medications This patient has no known medications. Procedures This patient has no known procedures. Results Test Description Test Time Test Comments Results Result Comments Source CBC W/AUTO DIFF WITH PLATELETS 2021-02-02 03:57:12 Test Item Value Reference Range Interpretation Comme nts WBC (test code = 1001) 7.7 K/UL 3.5-11.0 RBC (test code = 1002) 3.96 M/UL 3.80-5.40 HEMOGLOBIN (test code = 12.0 G/DL 11.5-15.5 1003) HEMATOCRIT (test code = 35.7 % 34.0-45.0 1004) MCV (test code = 1005) 90.2 fL 80.0-99.0 MCH (test code = 1006) 30.3 PG 25.0-33.0 MCHC (test code = 1007) 33.6 G/DL 31.0-36.0 RDW (test code = 1038) 13.0 % 11.5-15.0 NEUTROPHILS (test code = 60.1 % NO TE: EFFECTIVE 1008) 01/02/2021, REF ERENCE INTERVALS AND F LAGGING FORRELATIVE (%) WBC DIFFERENTIAL WI LL BE ELIMINATED R EDUNDANT TOABSOLUTE COUN TS.SEE [email or web address] [email or web address]_update LYMPHOCYTES (test code = 30.5 % 1010) MONOCYTES (test code = 1011) 6.4 % EOSINOPHILS (test code = 2.1 % 1012) BASOPHILS (test code = 1013) 0.5 % IMMATURE GRANYLOCYTES (test 0.4 % code = 1036) NUCLEATED RBCS (test code = 0.0 /100 WBC'S See_Comment [Automated message] The 1065) system which ge nerated this result transmit [place] reference range : 0.0. The reference range was not used to interpr et this result as tobin l/abnormal. PLATELET COUNT (test code = 150 K/UL 202-104 2620) ABSOLUTE NEUTROPHILS (test 4.63 K/UL 1.50-7.50 code = 1066) ABSOLUTE LYMPHOCYTES (test 2.35 K/UL 1.00-4.00 code = 1067) ABSOLUTE MONOCYTES (test 0.49 K/UL 0.20-1.00 code = 1068) ABSOLUTE EOSINOPHILS (test 0.16 K/UL 0.00-0.50 code = 1040) ABSOLUTE BASOPHILS (test 0.04 K/UL 0.00-0.20 code = 1069) ABS IMMATURE GRANULOCYTES 0.03 K/UL 0.00-0.10 (test code = 1020) ABS NUCLEATED RBCS (test 0.00 K/UL 0.00-0.11 code = 25360) COMPREHENSIVE METABOLIC [id number] 03:38:21 Test Item Value Reference Range Interpretation Comments GLUCOSE (test code = 123 MG/DL 70-99 H 2216) BUN (test code = 13 MG/DL 10-03) CREATININE (test 0.75 MG/DL 0.60-1.30 EFFECTIVE code = 2214) 01/23/2021, [facility] HAS IMPLEMENTED THE NKF-ASN RECOMME NDED KD-EPI EGF R REFIT CALCULATI ON THAT DOES NOT I NCLUDE A COEFFICIENT FORRACE. FOR MO RE INFORMATION, SE E ANNOUNCEMENT [email or web address] [email or web address]. COM/EGFR_CALC eGFR (2020 CKD-EPI) 80 >60 (test code = 11255) ML/MIN/1.73 CALC BUN/CREAT (test 17 RATIO 6-28 code = 2235) SODIUM (test code = 144 MEQ/L 369-180 3761) POTASSIUM (test code 4.6 MEQ/L 3.5-5.4 = 2228) CHLORIDE (test code 104 MEQ/L 95-107 = 2215) CARBON DIOXIDE (test 28 MEQ/L 19-31 code = 2206) CALCIUM (test code = 10.0 MG/DL 8.5-10.5 2209) PROTEIN, TOTAL (test 7.3 G/DL 6.1-8.3 code = 222) ALBUMIN (test code = 4.6 G/DL 3.5-5.2 2200) CALC GLOBULIN (test 2.7 G/DL 1.9-3.7 code = 2239) CALC A/G RATIO (test 1.7 RATIO 1.0-2.6 code = 2234) BILIRUBIN, TOTAL 0.4 MG/DL See_Comment [Automated message] (test code = 2206) The [employer] which generated this result transmitted ref erence range: <=1.2. T he reference range was not used to int erpret this result as normal/abnormal . ALKALINE PHOSPHATASE 79 U/L 40-142 (test code = 2203) AST (test code = 26 U/L 9-40 2217) ALT (test code = 21 U/L 5-40 UNLE SS 2218) OTHERWISE INDIC ATED, ALL TESTING PER [facility], [place] [place] [address] LABORATORY DIRE CTOR: EDIE PELAYO M.D. CLIA NUMBER [id number] CAP ACCREDITATION N O. [id number]
--- NOTE | 2021-04-18 16:15 | RAD REPORT ---
EXAM DESCRIPTION: CT - Head Brain Wo Cont - 04/18/2021 4:06 pm CLINICAL HISTORY: Head injury. Headache status post fall COMPARISON: None TECHNIQUE: Computed axial tomography of the head was obtained. IV contrast was not requested. All CT scans are performed using dose optimization technique as appropriate and may include automated exposure control or mA/KV adjustment according to patient size. FINDINGS: An intracranial bleed is not seen . The ventricles are normal in caliber. No extra-axial fluid collection is noted. Fluid within the sinuses/ mastoids is not seen. IMPRESSION: No acute intracranial abnormality is seen. If patient's symptoms persist MRI of the bra in would be recommended.
--- NOTE | 2021-04-18 16:24 | ER ---
Nurse's Notes [facility] Name: Preethi Samano Age: 80 yrs Sex: Female : 1940 Arrival Date: 04/18/2021 Time: 15:49 Bed 5 Private MD: Diagnosis: Unspecified injury of head, initial encounter Presentation: 04/18 15:49 Chief complaint: Patient states: pt presented stated a flower pot fell and hit her on aquino the head. she is report head and neck pain. Coronavirus screen: Vaccine status: Patient reports receiving the 2nd dose of the covid vaccine. Ebola Screen: Patient denies travel to an Ebola-affected area in the 21 days before illness onset. Initial Sepsis Screen: Does the patient meet any 2 criteria? No. Patient's initial sepsis screen is negative. Does the patient have a suspected source of infection?. Risk Assessment: Do you want to hurt yourself or someone else? Patient reports no desire to harm self or others. Onset of symptoms was April 17, 2021. 15:49 Method Of Arrival: EMS: [facility] 15:49 Acuity: ISRA[place] 4 aquino Triage Assessment: 16:01 General: Appears in no apparent distress. Behavior is calm, cooperative. Pain: aquino Complains of pain in forehead and back on neck. Historical: - Allergies: 16:01 No Known Allergies; aquino - Home Meds: 16:01 lisinopril 20 mg Oral tab 1 tab once daily [Active]; simvastatin 20 mg Oral tab 1 tab aquino once daily [Active]; - PMHx: 16:01 High Cholesterol; Hypertension; aquino - PSHx: 16:01 None; aquino - Immunization history:: Adult Immunizations up to date. - Social history:: Smoking status: Patient denies any tobacco usage or history of. - Family history:: not pertinent. - Hospitalizations: : No recent hospitalization is reported. Screenin:02 Abuse screen: Denies threats or abuse. Denies injuries from another. Nutritional aquino screening: No deficits noted. Tuberculosis screening: No symptoms or risk factors identified. Fall Risk None identified. Assessment: 16:02 General: Appears in no apparent distress. Behavior is. Pain: Complains of pain in top aquino of head and forehead. 16:03 Neuro: Level of Consciousness is awake, alert, obeys commands, Oriented to person, aquino place, time, situation. Derm: Bruising that is on top of head and forehead. Vital Signs: 15:49 BP 125 / 75; Pulse 87; Resp 16; Temp 98.4(O); Pulse Ox 100% on R/A; Weight 67.13 kg; aquino Height 4 ft. 8 in. (142.24 cm); 15:49 Body Mass Index 33.18 (67.13 kg, 142.24 cm) aquino [place] Coma Score: 15:56 Eye Response: spontaneous(4). Verbal Response: oriented(5). Motor Response: obeys rn commands(6). Total: 15. 16:17 Eye Response: spontaneous(4). Verbal Response: oriented(5). Motor Response: obeys rn commands(6). Total: 15. ED Course: 15:49 Patient arrived in ED. aquino 15:51 Mason Stoddard MD is Attending Physician. rn 15:59 Triage completed. aquino 16:01 Arm band placed on. aquino 16:02 Patient has correct armband on for positive identification. aquino 16:02 No provider procedures requiring assistance completed. aquino 16:05 CT Head Brain wo Cont In Process Unspecified. EDMS 16:32 Gavi Martinez, RN is Primary Nurse. aquino 16:45 Patient did not have IV access during this emergency room visit. aqiuno Administered Medications: No medications were administered Outcome: 16:23 Discharge ordered by . rn 16:44 Discharged to home ambulatory. aquino 16:44 Condition: good 16:44 Discharge instructions given to patient. 16:45 Patient left the ED. aquino Signatures: Dispatcher [employer] EDUT Mason Stoddard MD MD rn Au-Stager, Heather, RN RN aquino
--- NOTE | 2021-04-18 16:24 | EDPHYS ---
Physician Documentation [facility] Name: Preethi Samano Age: 80 yrs Sex: Female : 1940 Arrival Date: 04/18/2021 Time: 15:49 Bed 5 Private MD: ED Physician Mason Stoddard HPI: 04/18 15:56 This 80 yrs old Female presents to ER via Unassigned with complaints of head rn injury. 15:56 The patient or guardian reports injury, pain. The complaints affect the forehead. rn Onset: The symptoms/episode began/occurred yesterday. Associated signs and symptoms: Loss of consciousness: This patient did not experience any loss of consciousness. Pertinent positives: dizziness, Pertinent negatives: the patient has not experienced a loss of conciousness, double vision, neck pain, seizure, vomiting. Severity of symptoms: At their worst the symptoms were mild, in the emergency department the symptoms are unchanged. The patient has not experienced similar symptoms in the past. The patient has not recently seen a physician. Pt reports a falling heavy flowerpot hit her on forehead/top of head last night, no LOC, doesn't take blood thinners, but reports dizzy since injury. Here with family member but wants to be checked. . Historical: - Allergies: 16:01 No Known Allergies; aquino - Home Meds: 16:01 lisinopril 20 mg Oral tab 1 tab once daily [Active]; simvastatin 20 mg Oral tab 1 tab aquino once daily [Active]; - PMHx: 16:01 High Cholesterol; Hypertension; aquino - PSHx: 16:01 None; aquino - Immunization history:: Adult Immunizations up to date. - Social history:: Smoking status: Patient denies any tobacco usage or history of. - Family history:: not pertinent. - Hospitalizations: : No recent hospitalization is reported. ROS: 15:56 Constitutional: Negative for fever, chills, and weight loss, Eyes: Negative for injury, rn pain, redness, and discharge, Neck: Negative for injury, pain, and swelling, Cardiovascular: Negative for chest pain, palpitations, and edema, Respiratory: Negative for shortness of breath, cough, wheezing, and pleuritic chest pain, Abdomen/GI: Negative for abdominal pain, nausea, vomiting, diarrhea, and constipation, Back: Negative for injury and pain, MS/Extremity: Negative for injury and deformity, Skin: Negative for injury, rash, and discoloration, Neuro: + headache and dizziness Exam: 15:56 Constitutional: This is a well developed, well nourished patient who is awake, alert, rn and in no acute distress. Head/Face: Normocephalic, small superficial hematoma top of forehead, midline, no depression or laceration. Neck: No midline cervical tenderness Neuro: Awake and alert, GCS 15, oriented to person, place, time, and situation. Cranial nerves II-XII grossly intact. Motor strength 5/5 in all extremities. Sensory grossly intact. Cerebellar exam normal. Normal gait. Vital Signs: 15:49 BP 125 / 75; Pulse 87; Resp 16; Temp 98.4(O); Pulse Ox 100% on R/A; Weight 67.13 kg; aquino Height 4 ft. 8 in. (142.24 cm); 15:49 Body Mass Index 33.18 (67.13 kg, 142.24 cm) aquino Zoran Coma Score: 15:56 Eye Response: spontaneous(4). Verbal Response: oriented(5). Motor Response: obeys rn commands(6). Total: 15. 16:17 Eye Response: spontaneous(4). Verbal Response: oriented(5). Motor Response: obeys rn commands(6). Total: 15. MDM: 15:51 Patient medically screened. rn 16:17 Differential diagnosis: Contusion of Hematoma on Intracranial bleed- Concussion rn cerebral contusion. Data reviewed: vital signs, nurses notes, radiologic studies, CT scan, and as a result, I will discharge patient. Counseling: I had a detailed discussion with the patient and/or guardian regarding: the historical points, exam findings, and any diagnostic results supporting the discharge/admit diagnosis, radiology results, the need for outpatient follow up, to return to the emergency department if symptoms worsen or persist or if there are any questions or concerns that arise at home. Response to treatment: the patient's symptoms have mildly improved after treatment, and as a result, I will discharge patient. Special discussion: Based on the patient's history, exam and DX evaluation, there is no indication for emergent intervention or inpatient [place]. It is understood by the patient/guardian that if the SXs persist or worsen they need to return immediately for re-evaluation. I discussed with the patient/guardian in detail that at this point there is no indication for admission to the hospital. It is understood, however, that if the symptoms persist or worsen the patient needs to return immediately for re-evaluation. 04/18 15:54 Order name: CT Head Brain wo Cont; Complete Time: 16:17 rn Administered Medications: No medications were administered Disposition Summary: 04/18/21 16:23 Discharge Ordered Location: Home rn Problem: new rn Symptoms: have improved rn Condition: Stable rn Diagnosis - Unspecified injury of head, initial encounter rn Followup: rn - With: Private Physician - When: As needed - Reason: Recheck today's complaints, Re-evaluation by your physician Discharge Instructions: - Discharge Summary Sheet rn - Head Injury, Adult rn - Hematoma rn Forms: - Medication Reconciliation Form rn - Thank You Letter rn - Antibiotic chief of internal medicine - Prescription Opioid Use rn Signatures: Dispatcher [employer] Mason Broderick MD MD rn Au-Stager, Heather, RN RN aquino
[2021-04-18 17:13] VITALS: BP 125/75; TEMP 98.4; O2SAT 100
== END 2021-04-18 16:45 | disposition home or self-care (01) ==
LOC: ER 15:40
DX: S09.90XA Unspecified injury of head, initial encounter (principal); W22.8XXA Striking against or struck by other objects, initial encounter; I10 Essential (primary) hypertension; E78.00 Pure hypercholesterolemia, unspecified
CPT/HCPCS: 70450; 99283

== ENCOUNTER 2022-12-14 18:08 | Emergency (ER) | payer OTHER ==
--- OUTSIDE RECORDS SUMMARY | 2022-12-14 18:11 | XMS REPORT | Continuity of Care Document ---
:1940 Author Organization [facility] t Address [address] [facility]. [address] [place] [address] Care Team Providers Name Role Phone Unavailable Unavailable Unavailable Problems This patient has no known problems. Allergies, Adverse Reactions, Alerts This patient has no known allergies or adverse reactions. Medications This patient has no known medications. Procedures This patient has no known procedures. Encounters Start End Encounter Admission Attending Care Care Encounter Source Date/Time Date/Time Type Type Clinicians Facility Department ID 2022-11-20 2022-11-20 Outpatient [facility] SFA [id number] Kurt 16:41:15 16:41:15 [facility] [place] 2022-08-22 2022-08-22 Outpatient SFA SFA [id number] Kurt 11:19:25 11:19:25 07[address] [facility] [place] 2022-05-23 2022-05-23 Outpatient SFA SFA [id number] Kurt 17:01:06 17:01:06 0412 [facility] [place] 2022-01-16 2022-01-16 Outpatient SFA SFA [id number] Kurt 14:13:39 14:13:39 1206 [facility] Results Test Description Test Time Test Comments Results Result Comments Source LIPID PANEL 2022-08-23 05:19:34 Test Item Value Reference Range Interpretation Comme nts CHOLESTEROL (test code = 2210) 228 MG/DL <200 H TRIGLYCERIDES (test code = 2232) 159 MG/DL <150 H HDL CHOLESTEROL (test code = 48 MG/DL >39 2220) CALC LDL CHOL (test code = 2237) 151 MG/DL <100 H NOTE: CALCULATED LDL IS BASED ON YOLANDA-ZHANG METHOD WHICHINCLUDES A DJUSTABLE TRIGLYCERIDE:VL DL CHOLESTEROL RATIO.THIS FACT OR VARIES BY MEASURED TRIGLY CERIDE AND NON-HDLCHOLESTE ROL CONCENTRATIONS WITH INCREASED CALCULATED LDL SEENIN HIGHER T RIGLYCERIDE OR LOWER NON-HDL S PECIMENS. FOR MOREINFORMATION , SEE CLIENT ANNOUNCEMENT AT [email or web address] RATIO LDL/HDL (test code = 3.15 RATIO <3.22 2237) COMPREHENSIVE METABOLIC [id number] 05:19:34 Test Item Value Reference Range Interpretation Comments GLUCOSE (test code = 131 MG/DL 70-99 H 2216) BUN (test code = 19 MG/DL 8-23 2207) CREATININE (test 0.91 MG/DL 0.60-1.30 code = 221) eGFR (2020 CKD-EPI) 63 >60 (test code = 75159) ML/MIN/1.73 CALC BUN/CREAT (test 21 RATIO 6-28 code = 2235) SODIUM (test code = 143 MEQ/L 757-263 6488) POTASSIUM (test code 4.3 MEQ/L 3.5-5.4 = 2227) CHLORIDE (test code 102 MEQ/L 95-107 = 2214) CARBON DIOXIDE (test 27 MEQ/L 19-31 code = 220) CALCIUM (test code = 10.0 MG/DL 8.5-10.5 2208) PROTEIN, TOTAL (test 7.7 G/DL 6.1-8.3 code = 222) ALBUMIN (test code = 4.7 G/DL 3.5-5.2 2200) CALC GLOBULIN (test 3.0 G/DL 1.9-3.7 code = 2240) CALC A/G RATIO (test 1.6 RATIO 1.0-2.6 code = 223) BILIRUBIN, TOTAL 0.5 MG/DL See_Comment [Automated message] (test code = 220) The [employer] which generated this result transmitted ref erence range: <=1.2. T he reference range was not used to int erpret this result as normal/abnormal . ALKALINE PHOSPHATASE 82 U/L 40-142 (test code = 2203) AST (test code = 36 U/L 9-40 2217) ALT (test code = 20 U/L 5-40 UNLESS OTH ERWISE 2218) INDICATED, ALL TESTING PERFORM ED AT [facility], [facility]. [address] [place] [address] [facility] DIRECTOR: Parag CRYSTAL DEVANTE NUMBER [id number] [facility] ACCREDITATION N O. [id number] HEMOGLOBIN [id number] 03:20:02 Test Item Value Reference Range Interpretation Comments HEMOGLOBIN A1c (test 6.0 % 4.2-5.6 H AMERIC AN DIABETES code = 75407) ASSOCIATION IDELINES FOR HGB A1C: PREDIABETES/INC REASED RISK . . . . . . . 5.7 -6.4% DIAGNOSIS OF DI ABETES . . . . . . . . . >=6 .5% WITH CONFIRMATION OR APPROPRIATE SYMPTOMS NOTE: ASSAY MAY BE AFFECTED BY HEMOGLOBINOPATH IES (SICKLE CELL ANEMIA, S- C DISEASE, OTHERS) OR ANA MARÍA FICIALLY LOWERED BY DECR EASED RED CELL SURVIVAL ( HEMOLYTIC ANEMIAS, BLOOD LOSS, ETC.). CONSIDER ALTERN ATE TESTING OR LABORATORY C ONSULTATION. CBC W/AUTO DIFF WITH [id number] 03:57:12 Test Item Value Reference Range Interpretation Comments WBC (test code = 7.7 K/UL 3.5-11.0 1001) RBC (test code = 3.96 M/UL 3.80-5.40 1002) HEMOGLOBIN (test code 12.0 G/DL 11.5-15.5 = 1003) HEMATOCRIT (test code 35.7 % 34.0-45.0 = 1004) MCV (test code = 90.2 fL 80.0-99.0 1005) MCH (test code = 30.3 PG 25.0-33.0 1006) MCHC (test code = 33.6 G/DL 31.0-36.0 1007) RDW (test code = 13.0 % 11.5-15.0 1038) NEUTROPHILS (test 60.1 % NOTE: EFF ECTIVE code = 1008) 01/02/2021, REFERENCE INTER VALS AND FLAGGING FORRELATIVE (%) WBC DIFFERENTIAL WI LL BE ELIMINATED REDUNDANT TOABS OLUTE COUNTS.SEE [email or web address] [email or web address]_reporting _upda te LYMPHOCYTES (test 30.5 % code = 1010) MONOCYTES (test code 6.4 % = 1011) EOSINOPHILS (test 2.1 % code = 1012) BASOPHILS (test code 0.5 % = 1013) IMMATURE GRANYLOCYTES 0.4 % (test code = 1036) NUCLEATED RBCS (test 0.0 /100 See_Comment [Autom ated message] code = 1065) WBC'S The system [employer] generated this result transmit [place] reference range : 0.0. The refere nce range was not u sed to interpret th is result as normal/abnormal . PLATELET COUNT (test 150 K/UL 130-400 code = 1015) ABSOLUTE NEUTROPHILS 4.63 K/UL 1.50-7.50 (test code = 1066) ABSOLUTE LYMPHOCYTES 2.35 K/UL 1.00-4.00 (test code = 1067) ABSOLUTE MONOCYTES 0.49 K/UL 0.20-1.00 (test code = 1068) ABSOLUTE EOSINOPHILS 0.16 K/UL 0.00-0.50 (test code = 1040) ABSOLUTE BASOPHILS 0.04 K/UL 0.00-0.20 (test code = 1069) ABS IMMATURE 0.03 K/UL 0.00-0.10 GRANULOCYTES (test code = 1020) ABS NUCLEATED RBCS 0.00 K/UL 0.00-0.11 (test code = 62017) COMPREHENSIVE METABOLIC [id number] 03:38:21 Test Item Value Reference Range Interpretation Comments GLUCOSE (test code = 123 MG/DL 70-99 H 2216) BUN (test code = 13 MG/DL 10-03) CREATININE (test 0.75 MG/DL 0.60-1.30 EFFECTIVE code = 2214) 01/23/2021, [facility] HAS IMPLEMENTED THE NKF-ASN RECOMME NDED KD-EPI EGF R REFIT CALCULATI ON THAT DOES NOT I NCLUDE A COEFFICIENT FORRACE. FOR MO RE INFORMATION, SE E ANNOUNCEMENT [email or web address] LLABS. COM/EGFR_CALC eGFR (2020 CKD-EPI) 80 >60 (test code = 26415) ML/MIN/1.73 CALC BUN/CREAT (test 17 RATIO 6-28 code = 2235) SODIUM (test code = 144 MEQ/L 312-807 7442) POTASSIUM (test code 4.6 MEQ/L 3.5-5.4 = 2227) CHLORIDE (test code 104 MEQ/L 95-107 = 221) CARBON DIOXIDE (test 28 MEQ/L 19-31 code = 2206) CALCIUM (test code = 10.0 MG/DL 8.5-10.5 2208) PROTEIN, TOTAL (test 7.3 G/DL 6.1-8.3 code = 2228) ALBUMIN (test code = 4.6 G/DL 3.5-5.2 2200) CALC GLOBULIN (test 2.7 G/DL 1.9-3.7 code = 224) CALC A/G RATIO (test 1.7 RATIO 1.0-2.6 code = 223) BILIRUBIN, TOTAL 0.4 MG/DL See_Comment [Automated message] (test code = 2206) The [employer] which generated this result transmitted ref erence range: <=1.2. T he reference range was not used to int erpret this result as normal/abnormal . ALKALINE PHOSPHATASE 79 U/L 40-142 (test code = 2203) AST (test code = 26 U/L 9-40 2217) ALT (test code = 21 U/L 5-40 UNLESS OTH ERWISE 2218) INDICATED, ALL TESTING PERFORM ED [facility], [place] [address] [place] [address] [facility] DIRECTOR: EDIE STOVER M.D. CLIA NUMBER [id number] CAP ACCREDITATION N O. [id number]
--- NOTE | 2022-12-14 20:23 | RAD REPORT ---
EXAM DESCRIPTION: Ang Single View12/14/2022 8:03 pm CLINICAL HISTORY: Chest pain COMPARISON: August 2022 FINDINGS: Mild to moderate bilateral interstitial lung opacities without obvious change presumably c hronic. Heart is mildly to moderately enlarged
--- NOTE | 2022-12-14 20:34 | RAD REPORT ---
EXAM DESCRIPTION: CT - Head Brain Wo Cont - 12/14/2022 8:25 pm CLINICAL HISTORY: Headache COMPARISON: 2021 TECHNIQUE: Computed axial tomography of the head was obtained. IV contrast was not requested. All CT scans are performed using dose optimization technique as appropriate and may include automated exposure control or mA/KV adjustment according to patient size. FINDINGS: An intracranial bleed is not seen The ventricles are normal in caliber No extra-axial fluid collection is noted. Mild posterior cerebral atrophy Fluid within the sinuses/ mastoids is not seen. IMPRESSION: No acute intracranial abnormality is seen If patient's symptoms persist MRI of the brain would be recommended
[2022-12-14 20:49] LABS: Absolute Lymphocytes (CBC) 2.4 K/uL (0.7-4.9); Hematocrit 33.2 % (36.0-45.0); Lymphocytes % 30.1 % (15.3-44.8); MCV 89.8 fL (80-100); MPV 8.7 fL (7.6-11.3); Platelets 143 thou/uL (152-406); RBC Red Blood Cell Count 3.69 M/uL (3.86-4.86)
[2022-12-14 21:00] LABS: Protime INR 1.11
[2022-12-14] MEDS ORDERED: NA CHLORIDE 0.9% 1,000 ML ONE (21:00)
[2022-12-14] MEDS ORDERED: ONDANSETRON 4 MG/2 ML VIAL ONE (21:00)
[2022-12-14] MEDS ORDERED: MECLIZINE HCL 12.5 MG TAB ONE (21:03)
[2022-12-14 21:09] LABS: Albumin 3.3 g/dL (3.4-5.0); Bilirubin Direct 0.1 mg/dL (0-0.2); Bilirubin Indirect, Calculated 0.4 mg/dL (0.2-0.8); Bilirubin Total 0.5 mg/dL (0.2-1.0); Protein, Total 7.4 g/dL (6.4-8.2); Troponin High Sensitivity 6.1 pg/mL (<58.9)
[2022-12-14 21:11] LABS: Magnesium 2.1 mg/dL (1.6-2.4); Potassium 4.2 mEq/L (3.5-5.1)
--- NOTE | 2022-12-14 21:23 | EDPHYS ---
Physician Documentation [facility] Name: Preethi Samano Age: 82 yrs Sex: Female : 1940 Arrival Date: 12/14/2022 Time: 18:08 Bed 20 Private MD: ED Physician Tolu Gordon HPI: 12/14 21:35 This 82 yrs old Female presents to ER via Wheelchair with complaints of cp3 General Weakness, Dizziness, Leg Pain. 21:35 The patient presents with dizziness. Onset: The symptoms/episode began/occurred cp3 acutely, 1 day(s) ago. Context: occurred at home. Modifying factors: The symptoms are alleviated by nothing, the symptoms are aggravated by movement of head. Associated signs and symptoms: Pertinent positives: nausea. Severity of symptoms: At their worst the symptoms were moderate. The patient has experienced a previous episode. Historical: - Allergies: 18:22 No Known Allergies; cm10 - PMHx: 18:22 High Cholesterol; Hypertension; cm10 - Immunization history:: Adult Immunizations unknown. - Social history:: Smoking status: Patient denies any tobacco usage or history of. - Family history:: not pertinent. ROS: 21:35 Constitutional: Negative for fever, chills, and weight loss, Eyes: Negative for injury, cp3 pain, redness, and discharge, ENT: Negative for injury, pain, and discharge, Neck: Negative for injury, pain, and swelling, Cardiovascular: Negative for chest pain, palpitations, and edema, Respiratory: Negative for shortness of breath, cough, wheezing, and pleuritic chest pain, Back: Negative for injury and pain, : Negative for injury, bleeding, discharge, and swelling, MS/Extremity: Negative for injury and deformity, Skin: Negative for injury, rash, and discoloration, Psych: Negative for depression, anxiety, suicide ideation, homicidal ideation, and hallucinations, Allergy/Immunology: Negative for hives, rash, and allergies, Endocrine: Negative for neck swelling, polydipsia, polyuria, polyphagia, and marked weight changes, Hematologic/Lymphatic: Negative for swollen nodes, abnormal bleeding, and unusual bruising, 21:35 Abdomen/GI: Positive for nausea, vomiting, 21:35 Neuro: Positive for dizziness, Exam: 21:35 Constitutional: This is a well developed, well nourished patient who is awake, alert, cp3 and in no acute distress. Head/Face: Normocephalic, atraumatic. Eyes: Pupils equal round and reactive to light, extra-ocular motions intact. Lids and lashes normal. Conjunctiva and sclera are non-icteric and not injected. Cornea within normal limits. Periorbital areas with no swelling, redness, or edema. ENT: Nares patent. No nasal discharge, no septal abnormalities noted. Tympanic membranes are normal and external auditory canals are clear. Oropharynx with no redness, swelling, or masses, exudates, or evidence of obstruction, uvula midline. Mucous membranes moist. Neck: Trachea midline, no thyromegaly or masses palpated, and no cervical lymphadenopathy. Supple, full range of motion without nuchal rigidity, or vertebral point tenderness. No Meningismus. Chest/axilla: Normal chest wall appearance and motion. Nontender with no deformity. No lesions are appreciated. Cardiovascular: Regular rate and rhythm with a normal S1 and S2. No gallops, murmurs, or rubs. Normal PMI, no JVD. No pulse deficits. Respiratory: Lungs have equal breath sounds bilaterally, clear to auscultation and percussion. No rales, rhonchi or wheezes noted. No increased work of breathing, no retractions or nasal flaring. Abdomen/GI: Soft, non-tender, with normal bowel sounds. No distension or tympany. No guarding or rebound. No evidence of tenderness throughout. Skin: Warm, dry with normal turgor. Normal color with no rashes, no lesions, and no evidence of cellulitis. MS/ Extremity: Pulses equal, no cyanosis. Neurovascular intact. Full, normal range of motion. Neuro: Awake and alert, GCS 15, oriented to person, place, time, and situation. Cranial nerves II-XII grossly intact. Motor strength 5/5 in all extremities. Sensory grossly intact. Cerebellar exam normal. Normal gait. Psych: Awake, alert, with orientation to person, place and time. Behavior, mood, and affect are within normal limits. Vital Signs: 18:20 Pulse 88; Resp 18; Temp 99.3(TE); Pulse Ox 100% on R/A; Weight 61.23 kg (R); Pain 8/10; cm10 18:22 BP 125 / 64; cm10 20:36 BP 134 / 66; Pulse 86; Resp 18; Pulse Ox 96% on R/A; eh3 22:06 BP 144 / 70; Pulse 82; Resp 17; Temp 98; Pulse Ox 99% on R/A; rv 18:20 Pain Scale: Adult cm10 [place] Coma Score: 22:06 Eye Response: spontaneous(4). Motor Response: obeys commands(6). Verbal Response: rv oriented(5). Total: 15. MDM: 18:26 Patient medically screened. cp3 21:35 Differential diagnosis: cardiac arrhythmia, generalized weakness, hypovolemia, syncope, cp3 vertigo. Data reviewed: vital signs, nurses notes, lab test result(s), EKG, radiologic studies. Consideration of Admission/Observation Escalation of care including admission/observation considered. patient declined admission. 12/14 19:00 Order name: Basic Metabolic Panel; Complete Time: 21:21 3 12/14 19:00 Order name: CBC with Diff; Complete Time: 20:51 3 12/14 19:00 Order name: LFT's; Complete Time: 21:21 3 12/14 19:00 Order name: Magnesium; Complete Time: 21:21 3 12/14 19:00 Order name: NT PRO-BNP; Complete Time: 21:21 cp3 12/14 19:00 Order name: PT-INR; Complete Time: 21:05 cp3 12/14 19:00 Order name: Troponin HS; Complete Time: 21:21 cp3 12/14 19:00 Order name: XRAY Chest (1 view); Complete Time: 20:35 3 12/14 20:16 Order name: Head Brain Wo Cont; Complete Time: 20:35 EDMS 12/14 19:00 Order name: EKG; Complete Time: 19:01 cp3 12/14 19:00 Order name: Cardiac monitoring; Complete Time: 20:16 cp3 12/14 19:00 Order name: EKG - Nurse/Tech; Complete Time: 20:45 cp3 12/14 19:00 Order name: IV Saline Lock; Complete Time: 20:45 cp3 12/14 19:00 Order name: Labs collected and sent; Complete Time: 20:45 3 12/14 19:00 Order name: O2 Per Protocol; Complete Time: 19:44 3 12/14 19:00 Order name: O2 Sat Monitoring; Complete Time: 19:44 cp3 Administered Medications: 20:53 Drug: NS 0.9% IV 1000 ml IV at 1 bolus Per protocol; 1000 mL bolus Route: IV; Rate: 1 rv bolus; Site: right antecubital; 22:07 Follow up: IV Status: Completed infusion; IV Intake: 1000ml rv 20:53 Not Given (not appropriate at this timee): ondansetron 2 mg IVP once; over 2 minutes rv 20:53 Drug: Meclizine PO 25 mg PO once Route: PO; rv 22:06 Follow up: Response: No adverse reaction rv Disposition Summary: 12/14/22 21:22 Discharge Ordered Notes: Location: Home cp3 Condition: Stable cp3 Diagnosis - dizziness cp3 - leg cramps cp3 - nausea cp3 Followup: cp3 - With: Sohail Arguello MD - When: - Reason: Recheck today's complaints Discharge Instructions: - Discharge Summary Sheet cp3 - Dizziness cp3 - Leg Cramps cp3 Forms: - Medication Reconciliation Form cp3 - Thank You Letter cp3 - Antibiotic Education cp3 - Prescription Opioid Use cp3 - Patient Portal Instructions cp3 - Leadership Thank You Letter cp3 Prescriptions: - Meclizine 25 mg Oral Tablet - take 1 tablet ORAL route every 8 hours As needed; 30 tablet; Refills: 0, cp3 Product Selection Permitted - Zofran 4 mg Oral Tablet - take 1 tablet ORAL route every 12 hours As needed; 20 tablet; Refills: 0, cp3 Product Selection Permitted - Cyclobenzaprine 5 mg Oral Tablet - take 1 tablet ORAL route 3 times per day As needed; 15 tablet; Refills: 0, cp3 Product Selection Permitted Signatures: Dispatcher [employer] Tolu King MD MD cp3 Da Acevedo RN RN Essence Samuels RN RN cm10 Corrections: (The following items were deleted from the chart) 20:16 19:56 Facial Bones W/ [id number] ordered. EDMS EDMS
--- NOTE | 2022-12-14 21:23 | ER ---
Nurse's Notes [facility] Name: Preethi Samano Age: 82 yrs Sex: Female : 1940 Arrival Date: 12/14/2022 Time: 18:08 Bed 20 Private MD: Diagnosis: dizziness;leg cramps;nausea Presentation: 12/14 18:20 Chief complaint: Patient states: dizziness onset yesterday, neck pain and bilateral cm10 calf pain. Coronavirus screen: Vaccine status: Patient reports receiving the 2nd dose of the covid vaccine. Client denies travel out of the [place] in the last 14 days. Ebola Screen: Patient denies travel to an Ebola-affected area in the 21 days before illness onset. No symptoms or risks identified at this time. Initial Sepsis Screen: Does the patient meet any 2 criteria? No. Patient's initial sepsis screen is negative. Does the patient have a suspected source of infection? No. Patient's initial sepsis screen is negative. Risk Assessment: Do you want to hurt yourself or someone else? Patient reports no desire to harm self or others. Onset of symptoms was December 13, 2022. 18:20 Method Of Arrival: Wheelchair cm10 18:20 Acuity: [place] 3 cm10 Historical: - Allergies: 18:22 No Known Allergies; cm10 - PMHx: 18:22 High Cholesterol; Hypertension; cm10 - Immunization history:: Adult Immunizations unknown. - Social history:: Smoking status: Patient denies any tobacco usage or history of. - Family history:: not pertinent. Screenin:54 [facility] ED Fall Risk Assessment (Adult) History of falling in the last 3 months, rv including since admission No falls in past 3 months (0 pts) Score/Fall Risk Level 3 or more points = High Risk Oriented to surroundings, Maintained a safe environment, Educated pt \T\ family on fall prevention, incl call for assistance when getting out of bed, Assessed \T\ reinforced patient's understanding of fall precautions, Provided non-skid footwear, Hourly rounding (assess needs \T\ fall precautionary measures) done, Used ambulatory aids as needed (educated on \T\ assisted with), Used gait belt as appropriate Implemented a Fall Risk Plan of Care, Apply high fall risk patient identification: yellow non skid footwear/ fall signage, Placed fall mat w/ non beveled edge next to bed, Activated bed/chair alarm. Abuse screen: Denies threats or abuse. Denies injuries from another. Nutritional screening: No deficits noted. Tuberculosis screening: No symptoms or risk factors identified. Assessment: 19:45 General: Appears in no apparent distress. uncomfortable, Behavior is cooperative. Pain: eh3 Complains of pain in right leg and left leg. Neuro: Level of Consciousness is awake, alert, obeys commands, Oriented to person, place, time, situation, Reports dizziness, weakness. Cardiovascular: Capillary refill < 3 seconds Patient's skin is warm and dry. Respiratory: Airway is patent Respiratory effort is even, unlabored, Respiratory pattern is regular, symmetrical. Derm: Skin is pink, warm \T\ dry. Musculoskeletal: Circulation, motion, and sensation intact. Vital Signs: 18:20 Pulse 88; Resp 18; Temp 99.3(TE); Pulse Ox 100% on R/A; Weight 61.23 kg (R); Pain 8/10; cm10 18:22 BP 125 / 64; cm10 20:36 BP 134 / 66; Pulse 86; Resp 18; Pulse Ox 96% on R/A; eh3 22:06 BP 144 / 70; Pulse 82; Resp 17; Temp 98; Pulse Ox 99% on R/A; rv 18:20 Pain Scale: Adult cm10 [place] Coma Score: 22:06 Eye Response: spontaneous(4). Motor Response: obeys commands(6). Verbal Response: rv oriented(5). Total: 15. ED Course: 18:14 Patient arrived in ED. ts1 18:22 Triage completed. cm10 18:22 Arm band placed on Patient placed in waiting room. cm10 18:26 Tolu Gordon MD is Attending Physician. cp3 19:44 Faviola Lopez, DIAMANTE is Primary Nurse. eh3 19:45 Patient has correct armband on for positive identification. Placed in gown. Bed in low eh3 position. Call light in reach. Side rails up X2. Adult w/ patient. Provided Education on: use of call naik. Client placed on continuous cardiac and pulse oximetry monitoring. NIBP monitoring applied. 20:05 XRAY Chest (1 view) In Process Unspecified. EDMS 20:[address] via stretcher. nj 20:27 Head Brain Wo Cont In Process Unspecified. EDMS 20:45 Inserted saline lock: 20 gauge in right antecubital area, using aseptic technique. rv Blood collected. 20:54 Patient has correct armband on for positive identification. Provided Education on: rv vertigo. Client placed on continuous cardiac and pulse oximetry monitoring. NIBP monitoring applied. casing soaker on. 20:54 No provider procedures requiring assistance completed. rv 21:22 Sohail Arguello MD is Referral Physician. cp3 22:07 IV discontinued, intact, bleeding controlled, No redness/swelling at site. Pressure rv dressing applied. Administered Medications: 20:53 Drug: NS 0.9% IV 1000 ml IV at 1 bolus Per protocol; 1000 mL bolus Route: IV; Rate: 1 rv bolus; Site: right antecubital; 22:07 Follow up: IV Status: Completed infusion; IV Intake: 1000ml rv 20:53 Not Given (not appropriate at this timee): ondansetron 2 mg IVP once; over 2 minutes rv 20:53 Drug: Meclizine PO 25 mg PO once Route: PO; rv 22:06 Follow up: Response: No adverse reaction rv Intake: 22:07 IV: 1000ml; Total: 1000ml. rv Outcome: 21:22 Discharge ordered by MD. cp3 22:07 Discharged to home ambulatory, with family, rv 22:07 Condition: good 22:07 Discharge instructions given to patient, family, Instructed on discharge instructions, follow up and referral plans. medication usage, Demonstrated understanding of instructions, follow-up care, medications, Prescriptions given X 3, 22:07 Patient left the ED. rv Signatures: Dispatcher [employer] EDLA Tolu Gordon MD MD cp3 Karlos Jaimes Ronaldo, RN RN rv Faviola Lopez RN RN eh3 Luzmaria Taylor PAS PAS ts1 Essence Elizondo, RN RN cm10 Corrections: (The following items were deleted from the chart) 20:49 20:48 BP 134 / 66; Pulse 86bpm; Resp 18bpm; Pulse Ox 96% RA; eh3 eh3 21:18 20:36 General: Appears in no apparent distress. uncomfortable, Behavior is cooperative, 3 3 21:19 20:36 Pain: Complains of pain in right leg and left leg eh3 3 21:19 20:36 Neuro: Level of Consciousness is awake, alert, obeys commands, Oriented to 3 person, place, time, situation, Reports dizziness, weakness [facility] : 20:36 Cardiovascular: Capillary refill < 3 seconds Patient's skin is warm and dry. 3 3 : 20:36 Respiratory: Airway is patent Respiratory effort is even, unlabored, Respiratory 3 pattern is regular, symmetrical, [facility] : 20:36 Derm: Skin is pink, warm \T\ dry. 3 3 : 20:36 Musculoskeletal: Circulation, motion, and sensation intact. [facility] : 20:36 General: Appears in no apparent distress. uncomfortable, Behavior is cooperative, [place] [id number]
[2022-12-14 22:38] VITALS: BP 144/70; TEMP 98; O2SAT 99
== END 2022-12-14 22:07 | disposition home or self-care (01) ==
LOC: ER 18:08
DX: R42 Dizziness and giddiness (principal); R25.2 Cramp and spasm; R11.0 Nausea; R51.9 Headache, unspecified; M54.2 Cervicalgia; I10 Essential (primary) hypertension
CPT/HCPCS: 93005; 85025; 80048; 36415; 83735; 85610; 80076; 84484; 83880; 70450; 71045; 96360; 99285; J8597; J2405; J7030

== ENCOUNTER 2024-11-23 08:53 | Emergency (ER) | payer OTHER ==
--- OUTSIDE RECORDS SUMMARY | 2024-11-23 09:08 | XMS REPORT | Continuity of Care Document ---
Author Name Unknown Address [address] [facility] [address] [place] [address] [facility] Address [address] [facility] [address] [place] [address] Care Team Providers Care Nurse Infection Control Name Role Phone Unavailable Unavailable Unavailable Encounters Start Date/Time End Date/Time Encounter Type Admission Type Attending Clinicians [facility] Facility Care Department Encounter ID Source 2024-11-17 11:32:48 2024-11-17 11:32:48 Outpatient [facility]FA SFA [id number] Kurt Hubbard Coy 2024-07-20 14:02:26 2024-07-20 14:02:26 Outpatient [facility]FA SFA [id number] Kurt Hubbard Coy 2024-07-16 14:38:14 2024-07-16 14:38:14 Outpatient SFA SFA [id number] Kurt Hubbard Coy 2024-07-13 14:07:51 2024-07-13 14:07:51 Outpatient SFA SFA [id number] Kurt Hubbard Ocy 2024-03-23 11:15:07 2024-03-23 11:15:07 Outpatient SFA SFA [id number] Kurt Hubbard Coy 2024-03-12 11:07:27 2024-03-12 11:07:27 Outpatient SFA SFA [id number] Kurt Hubbard Coy 2023-09-10 15:36:57 2023-09-10 15:36:57 Outpatient SFA SFA [id number] [id number] Kurt Hubbard Coy 2023-06-03 15:59:25 2023-06-03 15:59:25 Outpatient SFA SFA [id number] Kurt Cespedes 2023-02-19 16:38:36 2023-02-19 16:38:36 Outpatient SFA SFA [id number] Kurt Cespedes 2022-11-20 16:41:15 2022-11-20 16:41:15 Outpatient [facility] [id number] Kurt Cespedes 2022-08-22 11:19:25 2022-08-22 11:19:25 Outpatient [facility] [id number] Kurt Cespedes 2022-05-23 17:01:06 2022-05-23 17:01:06 Outpatient [facility] [id number] Kurt Hubbard Coy 2022-01-16 14:13:39 2022-01-16 14:13:39 Outpatient [facility] [id number] Kurt Cespedes Results Test Description Test Time Test Comments Results Result Co mments Source CULTURE, URINE 2024-03-16 09:52:46 SPECIMEN NUMBER: [id number] CULTURE, URINE SPECIMEN NUMBER: [id number] SOURCE: URINE REPORT STATUS: FINAL ISOLATE NUMBER 1: ORGANISM: 03/14/2024 >100,000 CFU/ML ENTEROCOCCUS SPECIES (GROUP D) IDENTIFICATION: 03/15/2024 ENTEROCOCCUS SPECIES (GROUP D) ENTEROCOCCUS SP. AMPI CILLIN SENSITIVE <=2CIPROFLOXACIN SENSITIVE <=1LEVOFLOXACIN SENSITIVE <=1NITROFURANTOIN SENSITIVE <=32TETRACYCLINE RESISTANT >8VANCOMYCIN SENSITIVE 2 NOTE: NUMBERS DISPLAYED REPRESENT MINIMUM INHIBITORY CONCENTRATION (JOSH) WHICH IS EXPRESSED IN MCG/ML. HEPATITIS PANEL, [id number] 06:08:58* Test Item Value Reference Range Interpretation Comments HEPATITIS A TOTAL AB (test code = 2725) REACTIVE NON-REACTIVE A HEPATITIS B SURF AG (test code = 2739) NON-REACTIVE NON-REACTIVE HEP B CORE TOTAL AB (test code = 2729) NON-REACTIVE NON-REACTIVE HEPATITIS B SURFACE AB (test code = 2737) NON-REACTIVE NON-REACTIVE HEPATITIS C ANTIBODY (test code = 4675) NON-REACTIVE NON-REACTIVE INTERPRETATION HEPATITIS A: (test code = 2552) (NOTE) Hepatitis A sero logy consistent with past exposure or previousvaccination to hepatitis A virus. No evidence of current acutehepatitis A infection. INTERPRETATION HEPATITIS B: (test code = 71706) (NOTE) Hepatitis B sero logy shows no evidence of past exposure to orcurrent infection with hepatitis B virus. No evidence of hepatitis Bimmunization is identified. INTERPRETATION HEPATITIS C: (test code = 11611) (NOTE) Hepatitis C sero logy shows no evidence of exposure to hepatitisC virus at this time. It can take up to 12 months after exposure tothe hepatitis C virus for antibodies to become detectable in the blood in certain patients. HIV 1/2 4TH GEN, RFLX [id number] 06:08:58* Test Item Value Reference Range Interpretation Comme nts HIV 1/2 4TH GEN, RFLX CONF ( test code = 3514) NON-REACTIVE NON-REACTIVE TSH, THIRD [id number] 05:27:54* Test Item Value Reference Range Interpretation Comme nts TSH, THIRD GENERATION (test code = 2821) 1.760 UIU/ML 0.400-4.100 LIPID [id number] 04:54:34* Test Item Value Reference Range Interpretation Comme nts CHOLESTEROL (test code = 2210) 239 MG/DL <200 H TRIGLYCERIDES (test code = 2232) 102 MG/DL <150 HDL CHOLESTEROL (test code = 2220) 46 MG/DL >39 CALC LDL CHOL (test code = 2237) 171 MG/DL <100 H NOTE: CALCULATED LDL IS BASED ON YOLANDA-ZHANG METHOD WHICHINCLUDES ADJUSTABLE TRIGLYCERIDE:VLDL CHOLESTEROL RATIO.THIS FACTOR VARIES BY MEASURED TRIGLYCERIDE AND NON-HDLCHOLESTEROL CONCENTRATIONS WITH INCREASED CALCULATED LDL SEENIN HIGHER TRIGLYCERIDE OR LOWER NON-HDL SPECIMENS. FOR MOREINFORMATION, SEE CLIENT ANNOUNCEMENT AT [email or web address] RISK RATIO LDL/HDL (test code = 2238) 3.72 RATIO <3.22 H COMPREHENSIVE METABOLIC [id number] 04:54:34* Test Item Value Reference Range Interpretation Comme nts GLUCOSE (test code = 2217) 104 MG/DL 70-99 H BUN (test code = 2208) 16 MG/DL 8-23 CREATININE (test code = 2214) 0.70 MG/DL 0.60-1.30 eGFR (2020 CKD-EPI) (test co de = 26612) 86 ML/MIN/1.73 >60 CALC BUN/CREAT (test code = 2235) 23 RATIO 6-28 SODIUM (test code = 223) 142 MEQ/L 133-146 POTASSIUM (test code = 2227) 4.8 MEQ/L 3.5-5.4 CHLORIDE (test code = 2214) 103 MEQ/L 95-107 CARBON DIOXIDE (test code = 2205) 25 MEQ/L 19-31 CALCIUM (test code = 2208) 9.6 MG/DL 8.5-10.5 PROTEIN, TOTAL (test code = 2228) 7.5 G/DL 6.1-8.3 ALBUMIN (test code = 2200) 4.5 G/DL 3.5-5.2 CALC GLOBULIN (test code = 2239) 3.0 G/DL 1.9-3.7 CALC A/G RATIO (test code = 2233) 1.5 RATIO 1.0-2.6 BILIRUBIN, TOTAL (test code = 2206) 0.5 MG/DL <=1.2 ALKALINE PHOSPHATASE (test code = 2203) 91 U/L 40-142 AST (test code = 2217) 30 U/L 9-40 ALT (test code = 2218) 23 U/L 5-40 HEMOGLOBIN [id number] 04:41:25* Test Item Value Reference Range Interpretation Comme nts HEMOGLOBIN A1c (test code = 73251) 5.8 % 4.2-5.6 H [employer] GUIDELINES FOR HGB A1C: PREDIABETES/INCREASED RISK . . . . . . . 5.7-6.4% DIAGNOSIS OF DIABETES . . . . . . . . . >=6.5% WITH CONFIRMATION OR APPROPRIATE SYMPTOMS NOTE: ASSAY MAY BE AFFECTED BY HEMOGLOBINOPATHIES (SICKLE CELL ANEMIA, S-C DISEASE, OTHERS) OR ARTIFICIALLY LOWERED BY DECREASED RED CELL SURVIVAL (HEMOLYTIC ANEMIAS, BLOOD LOSS, ETC.). CONSIDER ALTERNATE TESTING OR LABORATORY CONSULTATION. CBC W/AUTO DIFF WITH [id number] 03:50:40* Test Item Value Reference Range Interpretation Comme nts WBC (test code = 1001) 6.4 K/UL 3.5-11.0 RBC (test code = 1002) 4.18 M/UL 3.80-5.40 HEMOGLOBIN (test code = 1003) 12.7 G/DL 11.5-15.5 HEMATOCRIT (test code = 1004) 38.9 % 34.0-45.0 MCV (test code = 1005) 93.1 fL 80.0-99.0 MCH (test code = 1006) 30.4 PG 25.0-33.0 MCHC (test code = 1007) 32.6 G/DL 31.0-36.0 RDW (test code = 1038) 12.9 % 11.5-15.0 NEUTROPHILS (test code = 1008) 48.9 % LYMPHOCYTES (test code = 1010) 41.1 % MONOCYTES (test code = 1011) 7.3 % EOSINOPHILS (test code = 1012) 1.9 % BASOPHILS (test code = 1013) 0.6 % IMMATURE GRANULOCYTES (test code = 1036) 0.2 % NUCLEATED RBCS (test code = 1065) 0.0 /100 WBC'S See_Comment [Automated TransBiodiesela ge] The system which generated this result transmitted reference range: 0.0. The reference range was not used to interpret this result as normal/abnormal. PLATELET COUNT (test code = 1015) 176 K/UL 130-400 ABSOLUTE NEUTROPHILS (test code = 1066) 3.13 K/UL 1.50-7.50 ABSOLUTE LYMPHOCYTES (test code = 1067) 2.63 K/UL 1.00-4.00 ABSOLUTE MONOCYTES (test code = 1068) 0.47 K/UL 0.20-1.00 ABSOLUTE EOSINOPHILS (test code = 1040) 0.12 K/UL 0.00-0.50 ABSOLUTE BASOPHILS (test code = 1069) 0.04 K/UL 0.00-0.20 ABS IMMATURE GRANULOCYTES (test code = 1020) 0.01 K/UL 0.00-0.10 ABS NUCLEATED RBCS (test code = 60250) 0.00 K/UL 0.00-0.11 LIPID [id number] 05:19:34* Test Item Value Reference Range Interpretation Comme nts CHOLESTEROL (test code = 2210) 228 MG/DL <200 H TRIGLYCERIDES (test code = 2232) 159 MG/DL <150 H HDL CHOLESTEROL (test code = 2220) 48 MG/DL >39 CALC LDL CHOL (test code = 2237) 151 MG/DL <100 H NOTE: CALCULATED LDL IS BASED ON YOLANDA-ZHANG METHOD WHICHINCLUDES ADJUSTABLE TRIGLYCERIDE:VLDL CHOLESTEROL RATIO.THIS FACTOR VARIES BY MEASURED TRIGLYCERIDE AND NON-HDLCHOLESTEROL CONCENTRATIONS WITH INCREASED CALCULATED LDL SEENIN HIGHER TRIGLYCERIDE OR LOWER NON-HDL SPECIMENS. FOR MOREINFORMATION, SEE CLIENT ANNOUNCEMENT AT [email or web address] [email or web address] RATIO LDL/HDL (test code = 223) 3.15 RATIO <3.22 COMPREHENSIVE METABOLIC [id number] 05:19:34* Test Item Value Reference Range Interpretation Comme nts GLUCOSE (test code = 2216) 131 MG/DL 70-99 H BUN (test code = 2207) 19 MG/DL 8-23 CREATININE (test code = 2213) 0.91 MG/DL 0.60-1.30 eGFR (2020 CKD-EPI) (test code = 82468) 63 ML/MIN/1.73 >60 CALC BUN/CREAT (test code = 223) 21 RATIO 6-28 SODIUM (test code = 2230) 143 MEQ/L 133-146 POTASSIUM (test code = 222) 4.3 MEQ/L 3.5-5.4 CHLORIDE (test code = 2214) 102 MEQ/L 95-107 CARBON DIOXIDE (test code = 2205) 27 MEQ/L 19-31 CALCIUM (test code = 2208) 10.0 MG/DL 8.5-10.5 PROTEIN, TOTAL (test code = 2228) 7.7 G/DL 6.1-8.3 ALBUMIN (test code = 2201) 4.7 G/DL 3.5-5.2 CALC GLOBULIN (test code = 2240) 3.0 G/DL 1.9-3.7 CALC A/G RATIO (test code = 223) 1.6 RATIO 1.0-2.6 BILIRUBIN, TOTAL (test code = 2206) 0.5 MG/DL See_Comment [Automated me ssage] The system which generated this result transmitted reference range: <=1.2. The reference range was not used to interpret this result as normal/abnormal. ALKALINE PHOSPHATASE (test code = 2203) 82 U/L 40-142 AST (test code = 2218) 36 U/L 9-40 ALT (test code = 2219) 20 U/L 5-40 UNLESS OTHERWISE INDICATED, ALL TESTING PERFORMED AT [facility] [address] [place] [id number] RETIREMENT SPECIALIST: SHELLEY HENDRIX M.D. CLIA NUMBER [id number] [facility] [place]. [id number] HEMOGLOBIN [id number] 03:20:02* Test Item Value Reference Range Interpretation Comme nts HEMOGLOBIN A1c (test code = 08843) 6.0 % 4.2-5.6 H [employer] GUIDELINES FOR HGB A1C: PREDIABETES/INCREASED RISK . . . . . . . 5.7-6.4% DIAGNOSIS OF DIABETES . . . . . . . . . >=6.5% WITH CONFIRMATION OR APPROPRIATE SYMPTOMS NOTE: ASSAY MAY BE AFFECTED BY HEMOGLOBINOPATHIES (SICKLE CELL ANEMIA, S-C DISEASE, OTHERS) OR ARTIFICIALLY LOWERED BY DECREASED RED CELL SURVIVAL (HEMOLYTIC ANEMIAS, BLOOD LOSS, ETC.). CONSIDER ALTERNATE TESTING OR LABORATORY CONSULTATION. CBC W/AUTO DIFF WITH [id number] 03:57:12* Test Item Value Reference Range Interpretation Comme nts WBC (test code = 1001) 7.7 K/UL 3.5-11.0 RBC (test code = 1002) 3.96 M/UL 3.80-5.40 HEMOGLOBIN (test code = 1003) 12.0 G/DL 11.5-15.5 HEMATOCRIT (test code = 1004) 35.7 % 34.0-45.0 MCV (test code = 1005) 90.2 fL 80.0-99.0 MCH (test code = 1006) 30.3 PG 25.0-33.0 MCHC (test code = 1007) 33.6 G/DL 31.0-36.0 RDW (test code = 1038) 13.0 % 11.5-15.0 NEUTROPHILS (test code = 1008) 60.1 % NOTE: EFFECTIVE 01/02/2021, REFERENCE INTERVALS AND FLAGGING FORRELATIVE (%) WBC DIFFERENTIAL WILL BE ELIMINATED REDUNDANT TOABSOLUTE COUNTS.SEE [email or web address] te LYMPHOCYTES (test code = 1010) 30.5 % MONOCYTES (test code = 1011) 6.4 % EOSINOPHILS (test code = 1012) 2.1 % BASOPHILS (test code = 1013) 0.5 % IMMATURE GRANYLOCYTES (test code = 1036) 0.4 % NUCLEATED RBCS (test code = 1065) 0.0 /100 WBC'S See_Comment [Automated message] The system which generated this result transmitted reference range: 0.0. The reference range was not used to interpret this result as normal/abnormal. PLATELET COUNT (test code = 1015) 150 K/UL 130-400 ABSOLUTE NEUTROPHILS (test code = 1066) 4.63 K/UL 1.50-7.50 ABSOLUTE LYMPHOCYTES (test code = 1067) 2.35 K/UL 1.00-4.00 ABSOLUTE MONOCYTES (test code = 1068) 0.49 K/UL 0.20-1.00 ABSOLUTE EOSINOPHILS (test code = 1040) 0.16 K/UL 0.00-0.50 ABSOLUTE BASOPHILS (test code = 1069) 0.04 K/UL 0.00-0.20 ABS IMMATURE GRANULOCYTES (test code = 1020) 0.03 K/UL 0.00-0.10 ABS NUCLEATED RBCS (test code = 34287) 0.00 K/UL 0.00-0.11 COMPREHENSIVE METABOLIC [id number] 03:38:21* Test Item Value Reference Range Interpretation Comme nts GLUCOSE (test code = 221) 123 MG/DL 70-99 H BUN (test code = 2207) 13 MG/DL 8-23 CREATININE (test code = 2214) 0.75 MG/DL 0.60-1.30 EFFECTIVE 2020, [facility] HAS IMPLEMENTED THE NKF-ASN RECOMMENDED KD-EPI EGFR REFIT CALCULATION THAT DOES NOT INCLUDE A COEFFICIENT FORRACE. FOR MORE INFORMATION, SEE ANNOUNCEMENT [email or web address].Official Limited Virtual/EGFR_CALC eGFR (2020 CKD-EPI) (test code = 27423) 80 ML/MIN/1.73 >60 CALC BUN/CREAT (test code = 2234) 17 RATIO 6-28 SODIUM (test code = 223) 144 MEQ/L 133-146 POTASSIUM (test code = 2228) 4.6 MEQ/L 3.5-5.4 CHLORIDE (test code = 2215) 104 MEQ/L 95-107 CARBON DIOXIDE (test code = 2205) 28 MEQ/L 19-31 CALCIUM (test code = 2208) 10.0 MG/DL 8.5-10.5 PROTEIN, TOTAL (test code = 2228) 7.3 G/DL 6.1-8.3 ALBUMIN (test code = 2200) 4.6 G/DL 3.5-5.2 CALC GLOBULIN (test code = 224) 2.7 G/DL 1.9-3.7 CALC A/G RATIO (test code = 2234) 1.7 RATIO 1.0-2.6 BILIRUBIN, TOTAL (test code = 2207) 0.4 MG/DL See_Comment [Automated me ssage] The system which generated this result transmitted reference range: <=1.2. The reference range was not used to interpret this result as normal/abnormal. ALKALINE PHOSPHATASE (test code = 2204) 79 U/L 40-142 AST (test code = 2218) 26 U/L 9-40 ALT (test code = 2219) 21 U/L 5-40 UNLESS OTHERWISE INDICATED, [facility] [address] [place] [address] RETIREMENT SPECIALIST: EDIE STOVER M.D. CLIA NUMBER [id number] [facility] [place]. [id number]
[2024-11-23 10:13] LABS: Influenza A Ag Negative; Influenza B Ag Negative; SARS-CoV-2 Antigen Rapid Res Negative (Negative)
--- NOTE | 2024-11-23 10:43 | RAD REPORT ---
EXAMINATION: ONE VIEW CHEST XR CLINICAL INDICATION: Female, 84 years old.,COUGH TECHNIQUE: Frontal chest projection is submitted. Examination is limited by patient positioning and t echnique. COMPARISON: 07/05/2024 FINDINGS: The lungs are grossly clear although suboptimal inspiratory effort somewhat limits evaluation. No pn eumothorax or sizable effusion. The heart is normal in size. Mediastinal contours are unremarkable. IMPRESSION: No acute intrathoracic abnormalities.
--- NOTE | 2024-11-23 10:49 | EDPHYS ---
Physician Documentation [facility] Name: Preethi Samano Age: 84 yrs Sex: Female : 1940 Arrival Date: 11/23/2024 Time: 08:53 Bed DIS2 Private MD: ED Physician Mason Stoddard HPI: 11/23 09:12 This 84 yrs old Female presents to ER via EMS with complaints of Cough. rn 09:12 Patient reports cough for 1 week. 2 family members with cough as well. 1 family member rn tested positive for COVID last week. Denies shortness of breath. Has productive cough but no hemoptysis. Also reports headache and myalgias.. Historical: - Allergies: 09:14 No Known Allergies; iw - PMHx: 09:14 High Cholesterol; Hypertension; Pneumonia; iw - Family history:: not pertinent. - Hospitalizations: : No recent hospitalization is reported. ROS: 09:12 Constitutional: Negative for fever, chills, and weight loss, Cardiovascular: Negative rn for chest pain, palpitations, and edema, Respiratory: Positive for cough, negative for shortness of breath Abdomen/GI: Negative for abdominal pain, nausea, vomiting, diarrhea, and constipation, MS/Extremity: Negative for injury and deformity, Skin: Negative for injury, rash, and discoloration, Neuro: Negative for headache, weakness, numbness, tingling, and seizure, Exam: 09:12 Constitutional: This is a well developed, well nourished patient who is awake, alert, rn and in no acute distress. Cardiovascular: Regular rate and rhythm. No pulse deficits. Respiratory: Speaking full sentences, unlabored. No increased work of breathing, no retractions or nasal flaring. Skin: Warm, dry with normal turgor. Normal color with no rashes, no lesions, and no evidence of cellulitis. Neuro: Awake and alert, GCS 15 Vital Signs: 09:24 BP 126 / 64; Pulse 70; Resp 16; Temp 98.1(O); Pulse Ox 100% on R/A; iw MDM: 09:04 Medical Screening Exam initiated rn 10:48 Differential Diagnosis: Bronchitis Influenza Upper Respiratory Infection Viral Syndrome rn Pneumonia. Data reviewed: vital signs, nurses notes, lab test result(s), radiologic studies, plain films, and as a result, I will discharge patient. Independent interpretation of the following test(s) in the Emergency Department X-Ray: My interpretation is Chest x-ray images negative for pneumonia per my interpretation. Care significantly affected by the following chronic conditions: Hypertension. Counseling: I had a detailed discussion with the patient and/or guardian regarding the historical points, exam findings, and any diagnostic results supporting the discharge/admit diagnosis, lab results, radiology results, the need for outpatient follow up, to return to the emergency department if symptoms worsen or persist or if there are any questions or concerns that arise at home. Special discussion: I discussed with the patient/guardian in detail that at this point there is no indication for admission to the hospital. It is understood, however, that if the symptoms persist or worsen the patient needs to return immediately for re-evaluation. 11/23 09:09 Order name: COVID-19 Ag + Flu A+B Ag; Complete Time: 10:25 rn 11/23 09:09 Order name: XRAY Chest (1 view); Complete Time: 10:48 rn Administered Medications: No medications were administered Disposition Summary: 11/23/24 10:49 Discharge Ordered Notes: Location: Home rn Problem: new rn Symptoms: are unchanged rn Condition: Stable rn Diagnosis - Cough rn Followup: rn - With: Private Physician - When: As needed - Reason: Recheck today's complaints, Re-evaluation by your physician Discharge Instructions: - Discharge Summary Sheet rn - Cough, Adult rn Forms: - Medication Reconciliation Form rn - Antibiotic negative turner - Prescription Opioid Use rn - Patient Portal Instructions rn - Leadership Thank You Letter rn Prescriptions: - Zithromax Z-Luke 250 mg Oral Tablet - take 1 tablet ORAL route as directed for 5 days Day 1 - take two (2) tablets rn one time. Day 2, 3, 4 , 5 take one (1) tablet once daily.; 6 tablet; Refills: 0, Product Selection Permitted Signatures: Dispatcher [employer] Sarahi Mojica RN RN Mason Salazar MD MD overnight associate: (The following items were deleted from the chart) : 09:09 COVID-19 Ag + Flu A+B Ag+I.LAB.BRZ ordered. EDMS EDMS : 09:09 Group A Streptococcus Rapid Sc+I.LAB.BRZ ordered. EDMS EDMS : 09:09 Chest Single View+RAD.RAD.BRZ ordered. EDMS EDMS
--- NOTE | 2024-11-23 10:49 | ER ---
Nurse's Notes [facility] Name: Preethi Samano Age: 84 yrs Sex: Female : 1940 Arrival Date: 11/23/2024 Time: 08:53 Bed DIS2 Private MD: Diagnosis: Cough Presentation: 11/23 09:11 Chief complaint: Patient states: cough, fever, cold symptoms X 1 week. Coronavirus iw screen: At this time, the client does not indicate any symptoms associated with coronavirus-19. Ebola Screen: No symptoms or risks identified at this time. Initial Sepsis Screen: Does the patient meet any 2 criteria? No. Patient's initial sepsis screen is negative. Does the patient have a suspected source of infection? No. Patient's initial sepsis screen is negative. Risk Assessment: Do you want to hurt yourself or someone else? Patient reports no desire to harm self or others. Onset of symptoms was November 16, 2024. 09:11 Method Of Arrival: EMS: [facility] iw 09:11 Acuity: [place]RA[place] 4 iw Historical: - Allergies: 09:14 No Known Allergies; iw - PMHx: 09:14 High Cholesterol; Hypertension; Pneumonia; iw - Family history:: not pertinent. - Hospitalizations: : No recent hospitalization is reported. Screenin:44 [facility] ED Fall Risk Assessment (Adult) History of falling in the last 3 months, iw including since admission No falls in past 3 months (0 pts) Confusion or Disorientation No (0 pts) Intoxicated or Sedated No (0 pts) Impaired Gait No (0 pts) Mobility Assist Device Used No (0 pt) Altered Elimination No (0 pt) Score/Fall Risk Level 0 - 2 = Low Risk Oriented to surroundings, Maintained a safe environment. Abuse screen: Denies threats or abuse. Nutritional screening: No deficits noted. Tuberculosis screening: No symptoms or risk factors identified. Assessment: 09:43 General: Appears in no apparent distress. Behavior is calm, cooperative. Neuro: Level iw of Consciousness is awake, alert, obeys commands, Oriented to person, place, Moves all extremities. Full function. Cardiovascular: Patient's skin is warm and dry. Respiratory: Respiratory effort is even, unlabored, Respiratory pattern is regular, symmetrical. Derm: Skin is intact, is healthy with good turgor. Musculoskeletal: Range of motion: intact in all extremities. 10:40 Reassessment: Patient appears in no apparent distress at this time. Patient and/or iw family updated on plan of care and expected duration. Pain level reassessed. Patient is alert, oriented x 3, equal unlabored respirations, skin warm/dry/pink. Vital Signs: 09:24 BP 126 / 64; Pulse 70; Resp 16; Temp 98.1(O); Pulse Ox 100% on R/A; iw ED Course: 09:04 Patient arrived in ED. iw 09:04 Mason Stoddard MD is Attending Physician. rn 09:04 Sarahi Flores RN is Primary Nurse. iw 09:12 Triage completed. iw 09:25 Arm band placed on. iw 10:21 XRAY Chest (1 view) In Process Unspecified. EDMS 10:41 No provider procedures requiring assistance completed. Patient did not have IV access iw during this emergency room visit. Administered Medications: No medications were administered Medication: 09:44 VIS not applicable for this client. iw Outcome: 10:49 Discharge ordered by MD. rn 11:29 Discharged to home iw 11:29 Condition: good 11:29 Discharge instructions given to patient, Instructed on discharge instructions, follow up and referral plans. Demonstrated understanding of instructions, follow-up care, medications, Prescriptions given X 1, 11:57 Patient left the ED. iw Signatures: Dispatcher [employer] EDMS Sarahi Flores, RN RN iw Mason Stoddard MD MD rn
[2024-11-23 13:47] VITALS: BP 126/64; TEMP 98.1; O2SAT 100
== END 2024-11-23 11:57 | disposition home or self-care (01) ==
LOC: ER 08:53
DX: R05.9 Cough, unspecified (principal); R51.9 Headache, unspecified; M79.10 Myalgia, unspecified site; Z11.52 Encounter for screening for COVID-19
CPT/HCPCS: 36415; 71045; 87428; 99283